=== PATIENT | male | born 1950 | race Caucasian/White ===

== ENCOUNTER 2017-11-06 19:46 | Inpatient (IN) | payer MEDICARE, BC ==
[2017-11-06] MEDS ORDERED: Acetaminophen/oxyCODONE 325-5 MG Tab PO ONE (20:26)
--- NOTE | 2017-11-06 20:31 | EDM.PDOC ---
ED HPI GENERAL MEDICAL PROBLEM - General Chief Complaint: Back Pain or Injury Stated Complaint: PAIN ON SHOULDER NOT AN ACCIDENT Time Seen by Provider: 11/06/17 20:15 Source of Information: Reports: Patient, Old Records, RN History Limitations: Reports: No Limitations - History of Present Illness INITIAL COMMENTS - FREE TEXT/NARRATIVE: 67 yo male followed at [place] for a recent dx of metastatic prostate CA. Recently had radiation tx's to his spine to tx mets at that site. Hormone therapy has been discussed, but not initiated. Has recent onset of chills(last night) and now pleuritic pain to the R upper back. Took an OTC agent for pain([facility] [employer] [facility] [employer]) about 1830h tonight. Not SOB. No significant cough. Pain today with breathing is in a different location from where he had his radiation treatment. Dry cough. Started smoking again, cigars, recently. Onset: Gradual Onset Date: 11/05/17 Duration: Hour(s):, Getting Worse Location: Reports: Chest, Back (R upper back in region of his ribs) Quality: Reports: Sharp Severity: Moderate Improves with: Reports: Rest Worsens with: Reports: Breathing (or coughing) Context: Reports: Other (recent chills, metastatic prostate CA) Associated Symptoms: Reports: Chest Pain (pleuritic), Fever/Chills (not sure about fever). Denies: Diaphoresis, Nausea/Vomiting, Rash, Shortness of Breath Treatments FOOD SERVER: Reports: Aspirin (Jason [employer]) Right Sided upper Back Pain Score (Numeric/FACES): 10 - Related Data Allergies Allergy/AdvReac Type Severity Reaction Status Date / Time No Known Allergies Allergy Verified 11/06/17 20:05 Home Meds: Home Meds Celecoxib [CeleBREX] 200 mg PO DAILY 08/23/15 [History] Omeprazole [Prilosec] 20 mg PO DAILY 08/23/15 [History] Sertraline [Zoloft] 50 mg PO DAILY 08/23/15 [History] Past Medical History HEENT History: Reports: Hard of Hearing, Impaired Vision Cardiovascular History: Reports: High Cholesterol, Other (See Below) Other Cardiovascular History: Pericardis many years ago Respiratory History: Reports: COPD Gastrointestinal History: Reports: Chronic Diarrhea, GERD, Hemorrhoids Genitourinary History: Reports: Prostate Disorder, Retention, Urinary, Other ( See Below) Other Genitourinary History: Prostate cancer Musculoskeletal History: Reports: Osteoarthritis Psychiatric History: Reports: Anxiety, Depression Oncologic (Cancer) History: Reports: Prostate Other Oncologic History: Prostate cancer 2014 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 Currently getting radiation to that area. Seefany Higginbotham, urologist at [place] - Infectious Disease History Infectious Disease History: Reports: Chicken Pox - Past Surgical History HEENT Surgical History: Reports: Oral Surgery, Tonsillectomy Social & Family History - Family History Family Medical History: Unobtainable - Tobacco Use Smoking Status *Q: Current Every Day Smoker Years of Tobacco use: 2 Packs/Tins Daily: 0.5 Used Tobacco, but Quit: No Tobacco Use Comment: Did quit for 15 years and recently started up smoking cigars. Second Hand Smoke Exposure: Yes - Caffeine Use Caffeine Use: Reports: Coffee - Alcohol Use Days Per Week of Alcohol Use: 4 Number of Drinks Per Day: 3 Total Drinks Per Week: 12 - Recreational Drug Use Recreational Drug Use: Yes ED ROS GENERAL - Review of Systems Review Of Systems: See Below Constitutional: Reports: Chills HEENT: Reports: No Symptoms Respiratory: Reports: Pleuritic Chest Pain (R posterior upper back), Cough (dry) . Denies: Shortness of Breath, Wheezing, Sputum, Hemoptysis Cardiovascular: Reports: No Symptoms Endocrine: Reports: No Symptoms GI/Abdominal: Reports: No Symptoms : Reports: No Symptoms Musculoskeletal: Reports: Back Pain (R upper back) Skin: Reports: No Symptoms Neurological: Reports: No Symptoms Psychiatric: Reports: No Symptoms ED EXAM, UPPER BACK/NECK PAIN - Physical Exam Exam: See Below Exam Limited By: No Limitations General Appearance: Alert, WD/WN, No Apparent Distress Eye Exam: Bilateral Eye: Normal Inspection Ears Exam: Normal External Exam, Hearing Grossly Normal Nose Exam: Normal Inspection, Normal Mucousa, No Blood Throat/Mouth Exam: Normal Inspection, Normal Lips, Normal Oropharynx, Normal Voice, No Airway Compromise Head Exam: Atraumatic, Normocephalic Neck Exam: Non-Tender, Full Range of Motion GI/Abdominal: Normal Bowel Sounds, Soft, Non-Tender, No Distention Back Exam: Normal Inspection, Other (Rib tenderness to the R mid back, just below and lateral to the lower edge of the scapula. ). 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 Had a recent IV start in this area. ) Lymphatic: No Adenopathy Course - Vital Signs Last Recorded V/S: Last Vital Signs Temp 36.6 C 11/06/17 22:10 Pulse 85 11/06/17 22:10 Resp 16 11/06/17 22:10 BP 155/88 H 11/06/17 22:10 Pulse Ox 95 11/06/17 22:10 - Orders/Labs/Meds Orders: Active Orders 24 hr Category Date Time Status Ang Chest [CT] Stat Exams 11/06/17 21:26 Taken Chest 2V [CR] Stat Exams 11/06/17 20:24 Taken Iopamidol [Isovue-370 (76%)] Med 11/06/17 21:45 Active 100 ml IV . DIRECTED Sodium Chloride 0.9% [Normal Saline] 100 ml Med 11/06/17 21:45 Active IV ASDIRECTED Sodium Chloride 0.9% [Saline Flush] Med 11/06/17 21:37 Active 10 ml FLUSH ASDIRECTED PRN Medication Orders Sodium Chloride (Normal Saline) 100 mls @ 4 mls/sec IV ASDIRECTED ARTHUR Last Admin: 11/06/17 22:05 Dose: 4 mls/sec Iopamidol (Isovue-370 (76%)) 100 ml IV . DIRECTED ARTHUR Last Admin: 11/06/17 22:05 Dose: 100 ml Sodium Chloride (Saline Flush) 10 ml FLUSH ASDIRECTED PRN PRN Reason: Keep Vein Open Last Admin: 11/06/17 22:04 Dose: 10 ml Admin: 11/06/17 21:44 Dose: 10 ml Labs: Laboratory Tests 11/06/17 11/06/17 11/06/17 Range/Units 20:24 20:24 20:24 WBC 11.9 H (4.5-11.0) K/uL RBC 4.65 (4.30-5.90) M/uL Hgb 14.5 (12.0-15.0) g/dL Hct 44.6 (40.0-54.0) % MCV 96 (80-98) fL MCH 31 (27-31) pg MCHC 33 (32-36) % Plt Count 161 (150-400) K/uL D-Dimer, Quantitative (0.0-400.0) ng/mL Sodium 141 (140-148) mmol/L Potassium 4.3 (3.6-5.2) mmol/L Chloride 106 (100-108) mmol/L Carbon Dioxide 25 (21-32) mmol/L Anion Gap 9.9 (5.0-14.0) mmol/L BUN 31 H (7-18) mg/dL Creatinine 1.4 H (0.8-1.3) mg/dL Est Cr Clr Drug Dosing 50.21 mL/min Estimated GFR (MDRD) 51 L (>60) Glucose 117 H (74-106) mg/dL Calcium 9.2 (8.5-10.1) mg/dL C-Reactive Protein 2.21 H (0.0-0.3) mg/dL 11/06/17 Range/Units 20:29 WBC (4.5-11.0) K/uL RBC (4.30-5.90) M/uL Hgb (12.0-15.0) g/dL Hct (40.0-54.0) % MCV (80-98) fL MCH (27-31) pg MCHC (32-36) % Plt Count (150-400) K/uL D-Dimer, Quantitative 2170 H (0.0-400.0) ng/mL Sodium (140-148) mmol/L Potassium (3.6-5.2) mmol/L Chloride (100-108) mmol/L Carbon Dioxide (21-32) mmol/L Anion Gap (5.0-14.0) mmol/L BUN (7-18) mg/dL Creatinine (0.8-1.3) mg/dL Est Cr Clr Drug Dosing mL/min Estimated GFR (MDRD) (>60) Glucose (74-106) mg/dL Calcium (8.5-10.1) mg/dL C-Reactive Protein (0.0-0.3) mg/dL Meds: Medications Generic Name Dose Route Start Last Admin Trade Name Freq PRN Reason Stop Dose Admin Sodium Chloride 100 mls @ 4 mls/sec 11/06/17 21:45 11/06/17 22:05 Normal Saline IV 4 mls/sec ASDIRECTED ARTHUR Administration Iopamidol 100 ml 11/06/17 21:45 11/06/17 22:05 Isovue-370 (76%) IV 100 ml . DIRECTED ARTHUR Administration Sodium Chloride 10 ml 11/06/17 21:37 11/06/17 22:04 Saline Flush FLUSH 10 ml ASDIRECTED PRN Administration Keep Vein Open Discontinued Medications Generic Name Dose Route Start Last Admin Trade Name Freq PRN Reason Stop Dose Admin Lactated Ringer's 1,000 mls @ 1,000 mls/hr 11/06/17 21:15 11/06/17 21:43 Ringers, Lactated IV 11/06/17 22:14 1,000 mls/hr BOLUS ONE Administration Oxycodone/Acetaminophen 1 tab 11/06/17 20:26 11/06/17 20:32 Percocet 325-5 Mg PO 11/06/17 20:27 1 tab ONETIME ONE Administration - Radiology Interpretation Free Text/Narrative:: CXR-? small infiltrate to the R of the lower heart border. CT-multiple small, bilateral, acute pulm emboli CT Results Date: 11/06/17 CT Results Time: 22:31 Departure - Departure Time of Disposition: 23:00 Disposition: Admitted As Inpatient 67 Condition: Fair Clinical Impression: Prostate cancer metastatic to bone Pulmonary emboli Qualifiers: Pulmonary embolism type: other Chronicity: acute Acute cor pulmonale presence: without acute cor pulmonale Qualified Code(s): I26.99 - Other pulmonary embolism without acute cor pulmonale - Discharge Information Referrals: Michael Keen MD [Primary Care Provider] - Forms: ED Department Discharge - My Orders Last 24 Hours: My Active Orders 11/06/17 20:24 Chest 2V [CR] Stat 11/06/17 21:26 Ang Chest [CT] Stat 11/06/17 21:37 Sodium Chloride 0.9% [Saline Flush] 10 ml FLUSH ASDIRECTED PRN 11/06/17 21:45 Iopamidol [Isovue-370 (76%)] 100 ml IV . DIRECTED Sodium Chloride 0.9% [Normal Saline] 100 ml IV ASDIRECTED - Assessment/Plan Last 24 Hours: My Active Orders 11/06/17 20:24 Chest 2V [CR] Stat 11/06/17 21:26 Ang Chest [CT] Stat 11/06/17 21:37 Sodium Chloride 0.9% [Saline Flush] 10 ml FLUSH ASDIRECTED PRN 11/06/17 21:45 Iopamidol [Isovue-370 (76%)] 100 ml IV . DIRECTED Sodium Chloride 0.9% [Normal Saline] 100 ml IV ASDIRECTED
[2017-11-06] MEDS ORDERED: Lactated Ringers 1,000 ML IV ONE (21:15)
[2017-11-06] MEDS: Sodium Chloride 0.9% 10 ML Syringe FLUSH PRN ×2 (21:44→22:04)
[2017-11-06] MEDS ORDERED: Sodium Chloride 0.9% 100 ML IV SCH (21:45)
[2017-11-06] MEDS ORDERED: Iopamidol 755 Mg/ML 100 ML Bottle IV SCH (21:45)
[2017-11-06] MEDS ORDERED: Enoxaparin 80 MG/0.8 ML Syringe SUBCUT ONE (22:31)
--- NOTE | 2017-11-06 23:40 | PCM.HP ---
H&P History of Present Illness - General Date of Service: 11/06/17 Admit Problem/Dx: Admission Diagnosis/Problem Admission Diagnosis/Problem Pulmonary embolism Source of Information: Patient, Family, Provider, RN Notes Reviewed History Limitations: Reports: No Limitations - History of Present Illness Initial Comments - Free Text/Narative: Mr. Baez is a 67-year-old gentleman who is admitted through the emergency department for further management of bilateral pulmonary emboli. 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 He has received recent radiation therapy to these areas at the [facility] in [place]. He was doing fairly well following this when he is noted over the past 24 hours not feeling as well, generally more tired and perhaps slightly more short of breath. Early this evening developed abrupt onset of pleuritic pain in his right back. He presented to the emergency department for further evaluation, d-dimer was found to be elevated. CT scan of the chest shows evidence of several bilateral pulmonary emboli. He is otherwise hemodynamically stable with adequate oxygenation on room air. He has no previous history of deep vein thrombosis or pulmonary emboli, he thinks his father may have had a history of deep vein thrombosis. Right Sided upper Back Pain Score (Numeric/FACES): 10 - Related Data Allergies/Adverse Reactions: Allergies Allergy/AdvReac Type Severity Reaction Status Date / Time No Known Allergies Allergy Verified 11/06/17 20:05 Home Medications: Home Meds Celecoxib [CeleBREX] 200 mg PO DAILY 08/23/15 [History] Omeprazole [Prilosec] 20 mg PO DAILY 08/23/15 [History] Sertraline [Zoloft] 50 mg PO DAILY 08/23/15 [History] Past Medical History HEENT History: Reports: Hard of Hearing, Impaired Vision Cardiovascular History: Reports: High Cholesterol, Other (See Below) Other Cardiovascular History: Pericardis many years ago Respiratory History: Reports: COPD Gastrointestinal History: Reports: Chronic Diarrhea, GERD, Hemorrhoids Genitourinary History: Reports: Prostate Disorder, Retention, Urinary, Other ( See Below) Other Genitourinary History: Prostate cancer Musculoskeletal History: Reports: Osteoarthritis Psychiatric History: Reports: Anxiety, Depression Oncologic (Cancer) History: Reports: Prostate Other Oncologic History: Prostate cancer 2014 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 Currently getting radiation to that area. Sees Alejandro Higginbotham, urologist at [facility] - Infectious Disease History Infectious Disease History: Reports: Chicken Pox - Past Surgical History HEENT Surgical History: Reports: Oral Surgery, Tonsillectomy Social & Family History - Family History Family Medical History: Unobtainable - Tobacco Use Smoking Status *Q: Current Every Day Smoker Years of Tobacco use: 2 Packs/Tins Daily: 0.5 Used Tobacco, but Quit: No Tobacco Use Comment: Did quit for 15 years and recently started up smoking cigars. Second Hand Smoke Exposure: Yes - Caffeine Use Caffeine Use: Reports: Coffee - Alcohol Use Days Per Week of Alcohol Use: 4 Number of Drinks Per Day: 3 Total Drinks Per Week: 12 - Recreational Drug Use Recreational Drug Use: Yes H&P Review of Systems - Review of Systems: Review Of Systems: See Below General: Reports: Malaise, Weakness. Denies: Fever, Chills HEENT: Reports: No Symptoms Pulmonary: Reports: Shortness of Breath, Pleuritic Chest Pain. Denies: Wheezing , Cough, Sputum, Hemoptysis Cardiovascular: Reports: Dyspnea on Exertion. Denies: Chest Pain, Palpitations , Orthopnea, PND, Edema, Lightheadedness Gastrointestinal: Reports: No Symptoms Genitourinary: Reports: No Symptoms Musculoskeletal: Reports: No Symptoms Skin: Reports: No Symptoms Psychiatric: Reports: No Symptoms Neurological: Reports: No Symptoms Hematologic/Lymphatic: Reports: No Symptoms Immunologic: Reports: No Symptoms Exam - Exam Exam: See Below - Vital Signs Vital Signs: Last Vital Signs Temp 98 F 11/06/17 22:10 Pulse 85 11/06/17 22:10 Resp 16 11/06/17 22:10 BP 155/88 H 11/06/17 22:10 Pulse Ox 95 11/06/17 22:10 Weight: 185 lb 13.595 oz - Exam Quality Assessment: DVT Prophylaxis. No: Supplemental Oxygen General: Alert, Oriented, Cooperative, Mild Distress HEENT: Conjunctiva Clear, Mucosa Moist & [place], Normal Nasal Septum, Posterior Pharynx Clear, Pupils Equal. No: Hearing Intact Neck: Supple, Trachea Midline, +2 Carotid Pulse wo Bruit Lungs: Clear to Auscultation, Normal Respiratory Effort Cardiovascular: Regular Rate, Regular Rhythm, Normal S1, Normal S2. No: Systolic Murmur, Diastolic Murmur GI/Abdominal Exam: Soft, Non-Tender, No Organomegaly, No Distention Back Exam: Normal Inspection, Full Range of Motion Extremities: Non-Tender, No Pedal Edema Skin: Warm, Dry, Intact Neurological: Cranial Nerves Intact, Strength Equal Bilateral, Normal Speech, Normal Tone, Sensation Intact. No: Focal Deficit Neuro Extensive - Mental Status: Alert, Oriented x3, Normal Mood/Affect, Normal Cognition, Memory Intact - Patient Data Lab Results Last 24 hrs: Laboratory Results - last 24 hr 11/06/17 11/06/17 11/06/17 Range/Units 20:24 20:24 20:24 WBC 11.9 H (4.5-11.0) K/uL RBC 4.65 (4.30-5.90) M/uL Hgb 14.5 (12.0-15.0) g/dL Hct 44.6 (40.0-54.0) % MCV 96 (80-98) fL MCH 31 (27-31) pg MCHC 33 (32-36) % Plt Count 161 (150-400) K/uL D-Dimer, Quantitative (0.0-400.0) ng/mL Sodium 141 (140-148) mmol/L Potassium 4.3 (3.6-5.2) mmol/L Chloride 106 (100-108) mmol/L Carbon Dioxide 25 (21-32) mmol/L Anion Gap 9.9 (5.0-14.0) mmol/L BUN 31 H (7-18) mg/dL Creatinine 1.4 H (0.8-1.3) mg/dL Est Cr Clr Drug Dosing 50.21 mL/min Estimated GFR (MDRD) 51 L (>60) Glucose 117 H (74-106) mg/dL Calcium 9.2 (8.5-10.1) mg/dL C-Reactive Protein 2.21 H (0.0-0.3) mg/dL 11/06/17 Range/Units 20:29 WBC (4.5-11.0) K/uL RBC (4.30-5.90) M/uL Hgb (12.0-15.0) g/dL Hct (40.0-54.0) % MCV (80-98) fL MCH (27-31) pg MCHC (32-36) % Plt Count (150-400) K/uL D-Dimer, Quantitative 2170 H (0.0-400.0) ng/mL Sodium (140-148) mmol/L Potassium (3.6-5.2) mmol/L Chloride (100-108) mmol/L Carbon Dioxide (21-32) mmol/L Anion Gap (5.0-14.0) mmol/L BUN (7-18) mg/dL Creatinine (0.8-1.3) mg/dL Est Cr Clr Drug Dosing mL/min Estimated GFR (MDRD) (>60) Glucose (74-106) mg/dL Calcium (8.5-10.1) mg/dL C-Reactive Protein (0.0-0.3) mg/dL Result Diagrams: 11/06/17 20:24 11/06/17 20:24 *Q Meaningful Use (ADM) - VTE *Q VTE Criteria *Q: VTE Pharmacological Contraindications *Q: High INR Value - VTE Risk Assess *Q Each Risk Factor Represents 1 Point: Obesity ( BMI > 25 kg/m2) Total Score 1 Point Risk Factors: 1 Each Risk Factor Represents 2 Points: Age 60 - 74 Years, Malignancy (present or previous) Total Score 2 Point Risk Factors: 4 Each Risk Factor Represents 3 Points: None Total Score 3 Point Risk Factors: 0 Each Risk Factor Represents 5 Points: None Total Score 5 Point Risk Factors: 0 Venous Thromboembolism Risk Factor Score *Q: 5 - Stroke *Q Stroke Criteria *Q: - AMI *Q AMI Criteria *Q: Problem List Initiated/Reviewed/Updated: Yes Orders Last 24hrs: Active Orders 24 hr Category Date Time Status Patient Status Manage Transfer [TRANSFER] Routine ADT 11/06/17 23:22 Active Ang Chest [CT] Stat Exams 11/06/17 21:26 Taken Chest 2V [CR] Stat Exams 11/06/17 20:24 Taken Iopamidol [Isovue-370 (76%)] Med 11/06/17 21:45 Active 100 ml IV . DIRECTED Sodium Chloride 0.9% [Normal Saline] 100 ml Med 11/06/17 21:45 Active IV ASDIRECTED Sodium Chloride 0.9% [Saline Flush] Med 11/06/17 21:37 Active 10 ml FLUSH ASDIRECTED PRN Resuscitation Status Routine Resus Stat 11/06/17 23:23 Ordered Medication Orders Sodium Chloride (Normal Saline) 100 mls @ 4 mls/sec IV ASDIRECTED ARTHUR Last Admin: 11/06/17 22:05 Dose: 4 mls/sec Iopamidol (Isovue-370 (76%)) 100 ml IV . DIRECTED ARTHUR Last Admin: 11/06/17 22:05 Dose: 100 ml Sodium Chloride (Saline Flush) 10 ml FLUSH ASDIRECTED PRN PRN Reason: Keep Vein Open Last Admin: 11/06/17 22:04 Dose: 10 ml Admin: 11/06/17 21:44 Dose: 10 ml Assessment/Plan Comment:: ASSESSMENT AND PLAN BILATERAL PULMONARY EMBOLI-in the setting of underlying metastatic prostate cancer, status post radiation therapy to thoracic spine. CT scan of the chest documented several bilateral pulmonary emboli. Discussed options for management including warfarin versus newer agents, risks and benefits were reviewed and he has elected to pursue therapy with warfarin -IV heparin per protocol for 2 days, then transition to subcutaneous Lovenox, overlap therapy for 5 days or 2 days after INR becomes therapeutic, which ever is longer -Daily INR -Warfarin 7.5 mg by mouth now METASTATIC PROSTATE CANCER -Ongoing outpatient follow-up through oncology department at the [facility] in [place] MAINTENANCE ISSUES -DVT prophylaxis; current therapy with IV heparin should provide adequate DVT prophylaxis -GI prophylaxis; continue outpatient PPI therapy -Caruso catheter; not required -Nutrition; not required -Nicotine dependence; not required CODE STATUS-FULL CODE ADMISSION STATUS-patient will be admitted to inpatient status, expect at least a 2 night hospital stay for evaluation and management of problems as outlined above. At the time of this admission I do not reasonably expected evaluation and management of this problem will require more than a 96 hour hospital stay. DISPOSITION-anticipate discharge to home after the hospital stay. PRIMARY CARE PROVIDER-Dr. Keen
[2017-11-06] MEDS ORDERED: Warfarin 2.5 MG Tab PO ONE (23:57)
[2017-11-06] MEDS ORDERED: Ondansetron 4 MG/2 ML SDV IV PRN (23:57)
[2017-11-06] MEDS ORDERED: Sodium Chloride 0.9% 10 ML Syringe FLUSH PRN (23:57)
[2017-11-07] MEDS: Lactated Ringers 1,000 ML IV SCH ×2 (00:40→08:00)
[2017-11-07] MEDS: Heparin Sodium/D5W 25,000 UNITS/500 ML BAG IV SCH ×2 (00:45→18:15)
[2017-11-07] MEDS: oxyCODONE 5 MG Tab PO PRN ×4 (01:10→20:21)
[2017-11-07] MEDS: Pantoprazole 40 MG Tab.CR PO SCH (07:58)
[2017-11-07] MEDS: Celecoxib 200 MG Cap PO SCH (08:00)
[2017-11-07] MEDS: Sertraline 50 MG Tab PO SCH (08:00)
--- NOTE | 2017-11-07 08:58 | CR ---
Chest 2V FINDINGS: The heart and vascular structures are normal in appearance. There are subtle increased inte rstitial markings in the right mid and lower lung lazar. There is mild density in the left lung base which may reflect atelectasis or mild infiltrate. There are no pleural effusions. Impression: 1. Mild interstitial infiltrates of the right mid lung and left base. There may be underlying fibrosi s as well.
[2017-11-07] MEDS ORDERED: Non-Formulary Medication 1 Each (Omeprazole [Prilosec] 20 MG) PO SCH (09:00)
--- NOTE | 2017-11-07 11:57 | PCM.PN ---
- General Info Date of Service: 11/07/17 Subjective Update: Mr. Baez has been stable since admission, other than transient hypoxia during the night that did respond to supplemental oxygen. Vital signs have otherwise been good and he has remained afebrile. Denies significant shortness of breath and has pleuritic chest pain has improved from admission. Functional Status: Reports: Pain Controlled, Tolerating Diet, Urinating - Review of Systems General: Reports: No Symptoms Pulmonary: Reports: No Symptoms Cardiovascular: Reports: No Symptoms Gastrointestinal: Reports: No Symptoms - Patient Data Vitals - Most Recent: Last Vital Signs Temp 96.3 F 11/07/17 11:00 Pulse 63 11/07/17 11:00 Resp 16 11/07/17 11:00 BP 121/53 L 11/07/17 11:00 Pulse Ox 93 L 11/07/17 11:00 Weight - Most Recent: 184 lb 12.804 oz I&O - Last 24 Hours: Intake & Output 11/06/17 11/07/17 11/07/17 22:59 06:59 14:59 Intake Total 783 100 Output Total 375 625 Balance 408 -525 Lab Results Last 24 Hours: Laboratory Results - last 24 hr 11/06/17 11/07/17 11/07/17 Range/Units 23:57 00:41 06:51 WBC (4.5-11.0) K/uL RBC (4.30-5.90) M/uL Hgb (12.0-15.0) g/dL Hct (40.0-54.0) % MCV (80-98) fL MCH (27-31) pg MCHC (32-36) % Plt Count (150-400) K/uL Neut % (Auto) (36-66) % Lymph % (Auto) (24-44) % Blount % (Auto) (2-6) % Eos % (Auto) (2-4) % Baso % (Auto) (0-1) % PT 10.0 10.3 (9.5-12.0) sec INR 0.94 0.96 (0.80-1.20) APTT 28.2 (27.0-36.0) sec Sodium (140-148) mmol/L Potassium (3.6-5.2) mmol/L Chloride (100-108) mmol/L Carbon Dioxide (21-32) mmol/L Anion Gap (5.0-14.0) mmol/L BUN (7-18) mg/dL Creatinine (0.8-1.3) mg/dL Est Cr Clr Drug Dosing mL/min Estimated GFR (MDRD) (>60) Glucose (74-106) mg/dL Calcium (8.5-10.1) mg/dL 11/07/17 11/07/17 11/07/17 Range/Units 06:51 06:51 06:51 WBC 7.9 (4.5-11.0) K/uL RBC 4.30 (4.30-5.90) M/uL Hgb 13.7 (12.0-15.0) g/dL Hct 41.5 (40.0-54.0) % MCV 97 (80-98) fL MCH 32 H (27-31) pg MCHC 33 (32-36) % Plt Count 145 L (150-400) K/uL Neut % (Auto) 58 (36-66) % Lymph % (Auto) 27 (24-44) % Blount % (Auto) 11 H (2-6) % Eos % (Auto) 4 (2-4) % Baso % (Auto) 0 (0-1) % PT (9.5-12.0) sec INR (0.80-1.20) APTT 61.8 H (27.0-36.0) sec Sodium 145 (140-148) mmol/L Potassium 3.9 (3.6-5.2) mmol/L Chloride 109 H (100-108) mmol/L Carbon Dioxide 25 (21-32) mmol/L Anion Gap 14.9 H (5.0-14.0) mmol/L BUN 27 H (7-18) mg/dL Creatinine 1.2 (0.8-1.3) mg/dL Est Cr Clr Drug Dosing 58.58 mL/min Estimated GFR (MDRD) > 60 (>60) Glucose 85 (74-106) mg/dL Calcium 8.6 (8.5-10.1) mg/dL Med Orders - Current: Current Medications Acetaminophen (Tylenol) 650 mg PO Q4H PRN PRN Reason: Pain (Mild 1-3)/fever Celecoxib (Celebrex) 200 mg PO DAILY [facility] Last Admin: 11/07/17 08:00 Dose: 200 mg Heparin Sodium/Dextrose (Heparin 25,000 Units In D5w 500 Ml) 25,000 units in 500 mls @ 26 mls/hr IV TITRATE [facility] PRN Reason: Protocol Last Admin: 11/07/17 00:45 Dose: 26 mls/hr, 26 mls/hr Ondansetron HCl (Zofran) 4 mg IV Q4H PRN PRN Reason: Nausea/Vomiting Oxycodone HCl (Oxycodone) 10 mg PO Q4H PRN PRN Reason: Pain (moderate 4-6) Last Admin: 11/07/17 07:57 Dose: 10 mg Pantoprazole Sodium (Protonix) 40 mg PO ACBREAKFAST [facility] Last Admin: 11/07/17 07:58 Dose: 40 mg Sertraline HCl (Zoloft) 50 mg PO DAILY [facility] Last Admin: 11/07/17 08:00 Dose: 50 mg Sodium Chloride (Saline Flush) 10 ml FLUSH ASDIRECTED PRN PRN Reason: Keep Vein Open Warfarin Sodium (Coumadin) 7.5 mg PO ONETIME ONE Stop: 11/07/17 11:55 Discontinued Medications Enoxaparin Sodium (Lovenox) 80 mg SUBCUT ONETIME ONE Stop: 11/06/17 22:32 Last Admin: 11/06/17 22:46 Dose: 80 mg Lactated Ringer's (Ringers, Lactated) 1,000 mls @ 1,000 mls/hr IV BOLUS ONE Stop: 11/06/17 22:14 Last Admin: 11/06/17 21:43 Dose: 1,000 mls/hr Sodium Chloride (Normal Saline) 100 mls @ 4 mls/sec IV ASDIRECTED [facility] Last Admin: 11/06/17 22:05 Dose: 4 mls/sec Lactated Ringer's (Ringers, Lactated) 1,000 mls @ 125 mls/hr IV ASDIRECTED [facility] Last Admin: 11/07/17 08:00 Dose: 125 mls/hr Iopamidol (Isovue-370 (76%)) 100 ml IV . DIRECTED [facility] Last Admin: 11/06/17 22:05 Dose: 100 ml Oxycodone/Acetaminophen (Percocet 325-5 Mg) 1 tab PO ONETIME ONE Stop: 11/06/17 20:27 Last Admin: 11/06/17 20:32 Dose: 1 tab Sodium Chloride (Saline Flush) 10 ml FLUSH ASDIRECTED PRN PRN Reason: Keep Vein Open Last Admin: 11/06/17 22:04 Dose: 10 ml Warfarin Sodium (Coumadin) 7.5 mg PO ONETIME ONE Stop: 11/06/17 23:58 Last Admin: 11/07/17 01:11 Dose: 7.5 mg - Exam Quality Assessment: Supplemental Oxygen, DVT Prophylaxis General: Alert, Oriented, Cooperative, No Acute Distress Lungs: Clear to Auscultation, Normal Respiratory Effort Cardiovascular: Regular Rate, Regular Rhythm, No Murmurs GI/Abdominal Exam: Soft, Non-Tender, No Organomegaly, No Distention Extremities: Non-Tender, No Pedal Edema Skin: Warm, Dry, Intact - Problem List Review Problem List Initiated/Reviewed/Updated: Yes - My Orders Last 24 Hours: My Active Orders 11/06/17 23:23 Resuscitation Status Routine 11/06/17 23:57 Patient Status [ADT] Routine Ambulate [RC] QID Height and Weight [RC] DAILY Intake and Output [RC] QSHIFT Notify Provider Vital Signs [RC] ASDIRECTED Oxygen Therapy [RC] PRN Peripheral IV Care [RC] . DIRECTED Pulse Oximetry [RC] CONTINUOUS Up ad Elyssa [RC] ASDIRECTED Up to Chair [RC] QID VTE/DVT Education [RC] Per Unit Routine Vital Signs [RC] Q4H Acetaminophen [Tylenol] 650 mg PO Q4H PRN Heparin Sodium/D5W [Heparin 25,000 Units in D5W 500 ML] 25,000 units in 500 ml IV TITRATE Ondansetron [Zofran] 4 mg IV Q4H PRN Sodium Chloride 0.9% [Saline Flush] 10 ml FLUSH ASDIRECTED PRN oxyCODONE 10 mg PO Q4H PRN Peripheral IV Insertion Adult [OM.PC] Routine VTE Pharmacological Contraindications [AST] Per Unit Routine 11/06/17 Dinner Regular Diet [DIET] 11/07/17 07:30 Pantoprazole [ProTONIX] 40 mg PO ACBREAKFAST 11/07/17 11:53 Convert IV to Saline Lock [OM.PC] Routine 11/07/17 11:54 Warfarin [Coumadin] 7.5 mg PO ONETIME ONE 11/08/17 05:00 CBC WITH AUTO DIFF [HEME] Timed INR,PT,PROTHROMBIN TIME [COAG] DAILY 11/09/17 05:00 INR,PT,PROTHROMBIN TIME [COAG] DAILY 11/10/17 05:00 INR,PT,PROTHROMBIN TIME [COAG] DAILY 11/11/17 05:00 INR,PT,PROTHROMBIN TIME [COAG] DAILY - Plan Plan:: ASSESSMENT AND PLAN BILATERAL PULMONARY EMBOLI-other than transient hypoxia he has been stable since admission with improvement in his pleuritic pain -IV heparin per protocol for 2 days, then transition to subcutaneous Lovenox, overlap therapy for 5 days or 2 days after INR becomes therapeutic, which ever is longer -Daily INR -Warfarin 7.5 mg by mouth now METASTATIC PROSTATE CANCER -Ongoing outpatient follow-up through oncology department at the [facility] in [place] MAINTENANCE ISSUES -DVT prophylaxis; current therapy with IV heparin should provide adequate DVT prophylaxis -GI prophylaxis; continue outpatient PPI therapy -Caruso catheter; not required -Nutrition; not required -Nicotine dependence; not required CODE STATUS-FULL CODE ADMISSION STATUS-patient will be admitted to inpatient status, expect at least a 2 night hospital stay for evaluation and management of problems as outlined above. At the time of this admission I do not reasonably expected evaluation and management of this problem will require more than a 96 hour hospital stay. DISPOSITION-anticipate discharge to home after the hospital stay. PRIMARY CARE PROVIDER-Dr. Keen
[2017-11-07] MEDS ORDERED: Warfarin 2.5 MG Tab PO ONE (13:00)
[2017-11-07] MEDS: Acetaminophen 325 MG Tab PO PRN (20:20)
[2017-11-08] MEDS: Acetaminophen 325 MG Tab PO PRN ×4 (00:24→21:15)
[2017-11-08] MEDS: oxyCODONE 5 MG Tab PO PRN ×4 (00:25→21:15)
[2017-11-08] MEDS: Pantoprazole 40 MG Tab.CR PO SCH (07:57)
[2017-11-08] MEDS: Sertraline 50 MG Tab PO SCH (09:31)
[2017-11-08] MEDS: Celecoxib 200 MG Cap PO SCH (09:31)
--- NOTE | 2017-11-08 12:03 | PCM.PN ---
- General Info Date of Service: 11/08/17 Subjective Update: Mr. Baez has been stable since yesterday, denies significant shortness of breath. Vital signs have remained stable and he has been afebrile. Functional Status: Reports: Pain Controlled, Tolerating Diet, Urinating - Review of Systems General: Denies: Fever, Chills Pulmonary: Reports: No Symptoms Cardiovascular: Reports: No Symptoms Gastrointestinal: Reports: No Symptoms - Patient Data Vitals - Most Recent: Last Vital Signs Temp 96.7 F 11/08/17 07:15 Pulse 50 L 11/08/17 07:15 Resp 16 11/08/17 07:15 BP 133/98 H 11/08/17 07:15 Pulse Ox 91 L 11/08/17 07:40 Weight - Most Recent: 184 lb 9.6 oz I&O - Last 24 Hours: Intake & Output 11/07/17 11/08/17 11/08/17 22:59 06:59 14:59 Intake Total 570 317 360 Output Total 350 750 400 Balance 220 -433 -40 Lab Results Last 24 Hours: Laboratory Results - last 24 hr 11/08/17 11/08/17 11/08/17 Range/Units 05:45 05:46 05:46 WBC 5.8 (4.5-11.0) K/uL RBC 4.29 L (4.30-5.90) M/uL Hgb 13.4 (12.0-15.0) g/dL Hct 41.4 (40.0-54.0) % MCV 97 (80-98) fL MCH 31 (27-31) pg MCHC 32 (32-36) % Plt Count 141 L (150-400) K/uL Neut % (Auto) 49 (36-66) % Lymph % (Auto) 29 (24-44) % Holt % (Auto) 14 H (2-6) % Eos % (Auto) 7 H (2-4) % Baso % (Auto) 1 (0-1) % PT 11.8 (9.5-12.0) sec INR 1.10 (0.80-1.20) APTT 63.8 H (27.0-36.0) sec Med Orders - Current: Current Medications Acetaminophen (Tylenol) 650 mg PO Q4H PRN PRN Reason: Pain (Mild 1-3)/fever Last Admin: 11/08/17 06:17 Dose: 650 mg Celecoxib (Celebrex) 200 mg PO DAILY [facility] Last Admin: 11/08/17 09:31 Dose: 200 mg Ondansetron HCl (Zofran) 4 mg IV Q4H PRN PRN Reason: Nausea/Vomiting Oxycodone HCl (Oxycodone) 10 mg PO Q4H PRN PRN Reason: Pain (moderate 4-6) Last Admin: 11/08/17 06:17 Dose: 10 mg Pantoprazole Sodium (Protonix) 40 mg PO ACBREAKFAST [facility] Last Admin: 11/08/17 07:57 Dose: 40 mg Sertraline HCl (Zoloft) 50 mg PO DAILY [facility] Last Admin: 11/08/17 09:31 Dose: 50 mg Sodium Chloride (Saline Flush) 10 ml FLUSH ASDIRECTED PRN PRN Reason: Keep Vein Open Discontinued Medications Enoxaparin Sodium (Lovenox) 80 mg SUBCUT ONETIME ONE Stop: 11/06/17 22:32 Last Admin: 11/06/17 22:46 Dose: 80 mg Lactated Ringer's (Ringers, Lactated) 1,000 mls @ 1,000 mls/hr IV BOLUS ONE Stop: 11/06/17 22:14 Last Admin: 11/06/17 21:43 Dose: 1,000 mls/hr Sodium Chloride (Normal Saline) 100 mls @ 4 mls/sec IV ASDIRECTED [facility] Last Admin: 11/06/17 22:05 Dose: 4 mls/sec Heparin Sodium/Dextrose (Heparin 25,000 Units In D5w 500 Ml) 25,000 units in 500 mls @ 26 mls/hr IV TITRATE [facility] PRN Reason: Protocol Last Admin: 11/07/17 18:15 Dose: 26 mls/hr, 26 mls/hr Lactated Ringer's (Ringers, Lactated) 1,000 mls @ 125 mls/hr IV ASDIRECTED [facility] Last Admin: 11/07/17 08:00 Dose: 125 mls/hr Iopamidol (Isovue-370 (76%)) 100 ml IV . DIRECTED [facility] Last Admin: 11/06/17 22:05 Dose: 100 ml Oxycodone/Acetaminophen (Percocet 325-5 Mg) 1 tab PO ONETIME ONE Stop: 11/06/17 20:27 Last Admin: 11/06/17 20:32 Dose: 1 tab Sodium Chloride (Saline Flush) 10 ml FLUSH ASDIRECTED PRN PRN Reason: Keep Vein Open Last Admin: 11/06/17 22:04 Dose: 10 ml Warfarin Sodium (Coumadin) 7.5 mg PO ONETIME ONE Stop: 11/06/17 23:58 Last Admin: 11/07/17 01:11 Dose: 7.5 mg Warfarin Sodium (Coumadin) 7.5 mg PO ONETIME ONE Stop: 11/07/17 13:01 Last Admin: 11/07/17 12:56 Dose: 7.5 mg - Exam Quality Assessment: DVT Prophylaxis. No: Supplemental Oxygen General: Alert, Oriented, Cooperative, No Acute Distress Lungs: Clear to Auscultation, Normal Respiratory Effort Cardiovascular: Regular Rate, Regular Rhythm, No Murmurs GI/Abdominal Exam: Soft, Non-Tender, No Organomegaly, No Distention Extremities: Non-Tender, No Pedal Edema Skin: Warm, Dry, Intact - Problem List Review Problem List Initiated/Reviewed/Updated: Yes - My Orders Last 24 Hours: My Active Orders 11/07/17 11:53 Convert IV to Saline Lock [OM.PC] Routine 11/08/17 11:59 Warfarin [Coumadin] 10 mg PO ONETIME ONE 11/08/17 12:00 Enoxaparin [Lovenox] 120 mg SUBCUT DAILY 11/09/17 05:00 INR,PT,PROTHROMBIN TIME [COAG] DAILY 11/10/17 05:00 INR,PT,PROTHROMBIN TIME [COAG] DAILY 11/11/17 05:00 INR,PT,PROTHROMBIN TIME [COAG] DAILY - Plan Plan:: ASSESSMENT AND PLAN BILATERAL PULMONARY EMBOLI-stable since yesterday with no significant shortness of breath -Discontinue IV heparin -Daily INR -Warfarin 10 mg by mouth now -Lovenox 120 mg subcutaneous daily METASTATIC PROSTATE CANCER -Ongoing outpatient follow-up through oncology department at the [facility] in [place] MAINTENANCE ISSUES -DVT prophylaxis; current therapy with IV heparin should provide adequate DVT prophylaxis -GI prophylaxis; continue outpatient PPI therapy -Caruso catheter; not required -Nutrition; not required -Nicotine dependence; not required CODE STATUS-FULL CODE ADMISSION STATUS-patient will be admitted to inpatient status, expect at least a 2 night hospital stay for evaluation and management of problems as outlined above. At the time of this admission I do not reasonably expected evaluation and management of this problem will require more than a 96 hour hospital stay. DISPOSITION-anticipate discharge to home tomorrow PRIMARY CARE PROVIDER-Dr. eKen
[2017-11-08] MEDS ORDERED: Warfarin 5 MG Tab PO ONE (13:00)
[2017-11-08] MEDS: Enoxaparin 120 MG/0.8 ML Syringe SUBCUT SCH (13:03)
[2017-11-09 08:08] VITALS: BP 164/86
[2017-11-09] MEDS: Pantoprazole 40 MG Tab.CR PO SCH (08:21)
[2017-11-09] MEDS: Sertraline 50 MG Tab PO SCH (08:21)
[2017-11-09] MEDS: Celecoxib 200 MG Cap PO SCH (08:21)
[2017-11-09] MEDS: Enoxaparin 120 MG/0.8 ML Syringe SUBCUT SCH (11:14)
[2017-11-09] MEDS ORDERED: Warfarin 2.5 MG Tab PO ONE (11:31)
--- NOTE | 2017-11-09 11:41 | PCM.DCSUM1 ---
Discharge Summary - Hospital Course Brief History: Mr. Baez is a 67-year-old gentleman who was admitted through the emergency department for further management of bilateral pulmonary emboli. - Discharge Data Discharge Date: 11/09/17 Discharge Disposition: Home, Self-Care 01 Condition: Fair - Discharge Diagnosis/Problem(s) (1) Pulmonary emboli SNOMED Code(s): 06137165 ICD Code: I26.99 - OTHER PULMONARY EMBOLISM WITHOUT ACUTE COR PULMONALE Status: Acute Current Visit: Yes Qualifiers: Pulmonary embolism type: other Chronicity: acute Acute cor pulmonale presence: without acute cor pulmonale Qualified Code(s): I26.99 - Other pulmonary embolism without acute cor pulmonale (2) Prostate cancer metastatic to bone SNOMED Code(s): 42446205 ICD Code: C61 - MALIGNANT NEOPLASM OF PROSTATE; C79.51 - SECONDARY MALIGNANT NEOPLASM OF BONE Status: Chronic Current Visit: Yes (3) COPD (chronic obstructive pulmonary disease) SNOMED Code(s): 10995977 ICD Code: J44.9 - CHRONIC OBSTRUCTIVE PULMONARY DISEASE, UNSPECIFIED Status : Chronic Current Visit: No - Patient Summary/Data Hospital Course: Mr. Baez is a 67-year-old gentleman who is admitted through the emergency department for further management of bilateral pulmonary emboli. 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 He has received recent radiation therapy to these areas at the [facility] in [place]. He was doing fairly well following this when he is noted over the past 24 hours not feeling as well, generally more tired and perhaps slightly more short of breath. Early on the evening of admission developed abrupt onset of pleuritic pain in his right back. He presented to the emergency department for further evaluation, d-dimer was found to be elevated. CT scan of the chest shows evidence of several bilateral pulmonary emboli. He is otherwise hemodynamically stable with adequate oxygenation on room air. He has no previous history of deep vein thrombosis or pulmonary emboli, he thinks his father may have had a history of deep vein thrombosis. He was admitted to the hospital and started on IV heparin continuous infusion as well as oral anticoagulation with warfarin. After 2 days of IV heparin infusion was transitioned to subcutaneous Lovenox 120 mg once daily. On the evening of admission received warfarin 7.5 mg and again 7.5 mg following day. INR remains subtherapeutic so on the day prior to discharge she was given 10 mg of warfarin. On the day of discharge INR remains subtherapeutic at 1.4 and he will be given 12.5 mg of warfarin today. He did well throughout his hospital stay with no significant shortness of breath and only one transient episode of hypoxia. He will not require supplemental oxygen at the time of discharge. He will be given prescription for warfarin 2.5 mg tablets and will take 10 mg daily. He will also be on Lovenox 120 mg subcutaneously daily until INR has been therapeutic for a period of 48 hours. Follow-up appointment has been arranged for him with his primary care provider Dr. Keen on the day after discharge as well as an appointment in the Coumadin clinic on the day after discharge. Activity will be as tolerated and he will resume his usual diet. - Patient Instructions Diet: Usual Diet as Tolerated Activity: As Tolerated Other/Special Instructions: Patient already has appointment scheduled with Dr. Keen as well as the Coumadin clinic for November 10. Daily Lovenox injections until INR has been therapeutic for 48 hours. - Discharge Plan Prescriptions/Med Rec: Enoxaparin Sodium [Lovenox] 120 mg SQ DAILY #5 ml Warfarin [Coumadin] 10 mg PO DAILY #120 tab Home Medications: Home Meds Celecoxib [CeleBREX] 200 mg PO DAILY 08/23/15 [History] Omeprazole [Prilosec] 20 mg PO DAILY 08/23/15 [History] Sertraline [Zoloft] 50 mg PO DAILY 08/23/15 [History] Vit A/Vit C/Vit E/Zinc/Copper [Preservision Areds Softgel] 1 each PO BID [History] Enoxaparin Sodium [Lovenox] 120 mg SQ DAILY #5 ml 11/09/17 [Rx] Warfarin [Coumadin] 10 mg PO DAILY #120 tab 11/09/17 [Rx] Referrals: Michael Keen MD [Primary Care Provider] - 11/10/17 11:00 am Coumadin,Clinic [Ordering Only Provider] - 11/10/17 10:30 am - Discharge Summary/Plan Comment DC Time >30 min.: No - Patient Data Vitals - Most Recent: Last Vital Signs Temp 98 F 11/09/17 08:07 Pulse 56 L 11/09/17 08:07 Resp 18 11/09/17 08:07 BP 164/86 H 11/09/17 08:07 Pulse Ox 99 11/09/17 08:07 Weight - Most Recent: 180 lb I&O - Last 24 hours: Intake & Output 11/08/17 11/09/17 11/09/17 22:59 06:59 14:59 Intake Total 1280 Balance 1280 Lab Results - Last 24 hrs: Laboratory Results - last 24 hr 11/09/17 Range/Units 05:30 PT 15.6 H (9.5-12.0) sec INR 1.44 H (0.80-1.20) Med Orders - Current: Current Medications Acetaminophen (Tylenol) 650 mg PO Q4H PRN PRN Reason: Pain (Mild 1-3)/fever Last Admin: 11/08/17 21:15 Dose: 650 mg Celecoxib (Celebrex) 200 mg PO DAILY [facility] Last Admin: 11/09/17 08:21 Dose: 200 mg Enoxaparin Sodium (Lovenox) 120 mg SUBCUT Q24H [facility] Last Admin: 11/09/17 11:14 Dose: 120 mg Ondansetron HCl (Zofran) 4 mg IV Q4H PRN PRN Reason: Nausea/Vomiting Oxycodone HCl (Oxycodone) 10 mg PO Q4H PRN PRN Reason: Pain (moderate 4-6) Last Admin: 11/08/17 21:15 Dose: 10 mg Pantoprazole Sodium (Protonix) 40 mg PO ACBREAKFAST [facility] Last Admin: 11/09/17 08:21 Dose: 40 mg Sertraline HCl (Zoloft) 50 mg PO DAILY [facility] Last Admin: 11/09/17 08:21 Dose: 50 mg Sodium Chloride (Saline Flush) 10 ml FLUSH ASDIRECTED PRN PRN Reason: Keep Vein Open Warfarin Sodium (Coumadin) 12.5 mg PO ONETIME ONE Stop: 11/09/17 11:32 Discontinued Medications Enoxaparin Sodium (Lovenox) 80 mg SUBCUT ONETIME ONE Stop: 11/06/17 22:32 Last Admin: 11/06/17 22:46 Dose: 80 mg Lactated Ringer's (Ringers, Lactated) 1,000 mls @ 1,000 mls/hr IV BOLUS ONE Stop: 11/06/17 22:14 Last Admin: 11/06/17 21:43 Dose: 1,000 mls/hr Sodium Chloride (Normal Saline) 100 mls @ 4 mls/sec IV ASDIRECTED [facility] Last Admin: 11/06/17 22:05 Dose: 4 mls/sec Heparin Sodium/Dextrose (Heparin 25,000 Units In D5w 500 Ml) 25,000 units in 500 mls @ 26 mls/hr IV TITRATE [facility] PRN Reason: Protocol Last Admin: 11/07/17 18:15 Dose: 26 mls/hr, 26 mls/hr Lactated Ringer's (Ringers, Lactated) 1,000 mls @ 125 mls/hr IV ASDIRECTED [facility] Last Admin: 11/07/17 08:00 Dose: 125 mls/hr Iopamidol (Isovue-370 (76%)) 100 ml IV . DIRECTED [facility] Last Admin: 11/06/17 22:05 Dose: 100 ml Oxycodone/Acetaminophen (Percocet 325-5 Mg) 1 tab PO ONETIME ONE Stop: 11/06/17 20:27 Last Admin: 11/06/17 20:32 Dose: 1 tab Sodium Chloride (Saline Flush) 10 ml FLUSH ASDIRECTED PRN PRN Reason: Keep Vein Open Last Admin: 11/06/17 22:04 Dose: 10 ml Warfarin Sodium (Coumadin) 7.5 mg PO ONETIME ONE Stop: 11/06/17 23:58 Last Admin: 11/07/17 01:11 Dose: 7.5 mg Warfarin Sodium (Coumadin) 7.5 mg PO ONETIME ONE Stop: 11/07/17 13:01 Last Admin: 11/07/17 12:56 Dose: 7.5 mg Warfarin Sodium (Coumadin) 10 mg PO ONETIME ONE Stop: 11/08/17 13:01 Last Admin: 11/08/17 13:03 Dose: 10 mg - Exam Quality Assessment: Reports: DVT Prophylaxis. Denies: Supplemental Oxygen General: Reports: Alert, Oriented, Cooperative, No Acute Distress Lungs: Reports: Clear to Auscultation, Normal Respiratory Effort Cardiovascular: Reports: Regular Rate, Regular Rhythm, No Murmurs GI/Abdominal Exam: Soft, Non-Tender, No Organomegaly, No Distention *Q Meaningful Use (DIS) - VTE *Q VTE Criteria *Q: VTE Pharmacological Contraindications *Q: High INR Value - Stroke *Q Stroke Criteria *Q: - AMI *Q AMI Criteria *Q:
[2017-11-09] MEDS ORDERED: Warfarin 10 MG, Warfarin 2.5 MG PO ONE ×2 (13:00)
== END 2017-11-09 12:13 | disposition home or self-care (01) | DRG 176 ==
LOC: JP.ED 19:46 → JP.MS 23:22
PROVIDERS: ADMIT Hospitalist; ATTEND Hospitalist
DX: I26.99 Other pulmonary embolism without acute cor pulmonale (principal); C79.51 Secondary malignant neoplasm of bone; C61 Malignant neoplasm of prostate; F17.290 Nicotine dependence, other tobacco product, uncomplicated; Z87.891 Personal history of nicotine dependence; R79.1 Abnormal coagulation profile; R07.81 Pleurodynia; J44.9 Chronic obstructive pulmonary disease, unspecified; R09.02 Hypoxemia; Z92.3 Personal history of irradiation; F32.9 Major depressive disorder, single episode, unspecified; F41.9 Anxiety disorder, unspecified; M19.90 Unspecified osteoarthritis, unspecified site; K21.9 Gastro-esophageal reflux disease without esophagitis; H54.7 Unspecified visual loss; H91.90 Unspecified hearing loss, unspecified ear; Z79.01 Long term (current) use of anticoagulants
CPT/HCPCS: 36415; 71046 ×2; 71275; 80048; 85027; 85379; 86140; 96360; 99285; A9270; J1650; J7030; J7050 ×2; J7120; Q9967; 85025; 85610; 85730; 94762; 99284; J1644

== ENCOUNTER 2019-02-09 09:02 | Inpatient (IN) | payer MEDICARE, BC ==
--- NOTE | 2019-02-09 09:19 | EDM.PDOC ---
ED HPI GENERAL MEDICAL PROBLEM - General Chief Complaint: Chest Pain Stated Complaint: CHEST PAIN Time Seen by Provider: 02/09/19 09:17 Source of Information: Reports: Patient History Limitations: Reports: No Limitations - History of Present Illness INITIAL COMMENTS - FREE TEXT/NARRATIVE: pt developed chest pressure in the middle of the nite. This has been persistent. He did take 3 --325 mg asa at home at around 4 am. He has not been sweaty. pt does have a past history of pericarditis. He also had a PE 1 year ago.He has been off of coumadin for several monthes. he feels less pressure when he is sitting up. He did take 3 adult 325 mg asa at home. Onset: Other ( started in the middle of the nite. ) Duration: Hour(s):, Getting Worse Location: Reports: Chest, Other (pt is having chest pressure. ) Associated Symptoms: Reports: Chest Pain, Shortness of Breath, Other ( feels better sitting up and a little forward. ) Chest Pain Score (Numeric/FACES): 8 - Related Data Allergies Allergy/AdvReac Type Severity Reaction Status Date / Time No Known Allergies Allergy Verified 02/09/19 09:18 Home Meds: Home Meds Celecoxib [CeleBREX] 200 mg PO DAILY 08/23/15 [History] Omeprazole [Prilosec] 20 mg PO DAILY 08/23/15 [History] Sertraline [Zoloft] 50 mg PO DAILY 08/23/15 [History] Vit A/Vit C/Vit E/Zinc/Copper [Preservision Areds Softgel] 1 each PO BID [History] Past Medical History HEENT History: Reports: Hard of Hearing, Impaired Vision Cardiovascular History: Reports: High Cholesterol, Other (See Below) Other Cardiovascular History: Pericarditis many years ago Respiratory History: Reports: COPD, PE Gastrointestinal History: Reports: Chronic Diarrhea, GERD, Hemorrhoids Genitourinary History: Reports: Prostate Disorder, Retention, Urinary, Other ( See Below) Other Genitourinary History: Prostate cancer Musculoskeletal History: Reports: Osteoarthritis Psychiatric History: Reports: Anxiety, Depression Oncologic (Cancer) History: Reports: Prostate Other Oncologic History: Prostate cancer dx in 2004, 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 Currently getting radiation to that area. Sees Alejandro Higginbotham, urologist at [facility]. - Infectious Disease History Infectious Disease History: Reports: Chicken Pox - Past Surgical History HEENT Surgical History: Reports: Oral Surgery, Tonsillectomy Social & Family History - Family History Family Medical History: Noncontributory - Caffeine Use Caffeine Use: Reports: Coffee ED ROS GENERAL - Review of Systems Review Of Systems: See Below Constitutional: Reports: No Symptoms HEENT: Reports: No Symptoms Respiratory: Reports: Shortness of Breath Cardiovascular: Reports: Chest Pain, Other ( He does describe this as more of a pressure. ) Endocrine: Reports: No Symptoms GI/Abdominal: Reports: Other (pt has the sensation he would feel better if he could burp. ) : Reports: No Symptoms Musculoskeletal: Reports: No Symptoms Skin: Reports: No Symptoms ED EXAM, GENERAL - Physical Exam Exam: See Below Free Text/Narrative:: pt arrived with chest pressure that started in the middle of the nite. He stated that the pain got alot better when he did sit forward and alot worse when he would lie down. He did feel mildly sob. Exam Limited By: No Limitations General Appearance: Alert, Anxious, Moderate Distress Ears: Normal TMs Nose: Normal Inspection Throat/Mouth: Normal Inspection Head: Atraumatic Neck: Normal Inspection Respiratory/Chest: Other ( some pain with deep breathing. ) Cardiovascular: Regular Rate, Rhythm, Other (no definite rubs noted. ) GI/Abdominal: Soft, Non-Tender Rectal (Males) Exam: Deferred Back Exam: Normal Inspection Extremities: Normal Inspection Neurological: Alert, Oriented, Normal Cognition, Abnormal Reflexes Course - Vital Signs Last Recorded V/S: Last Vital Signs Temp 36.4 C 02/09/19 09:09 Pulse 66 02/09/19 12:20 Resp 22 H 02/09/19 12:20 BP 119/69 02/09/19 12:20 Pulse Ox 93 L 02/09/19 12:20 - Orders/Labs/Meds Orders: Active Orders 24 hr Category Date Time Status EKG Documentation Completion [RC] ASDIRECTED Care 02/09/19 09:14 Active Sodium Chloride 0.9% [Normal Saline] 1,000 ml Med 02/09/19 11:30 Active IV ASDIRECTED EKG 12 Lead [EK] Routine Ther 02/09/19 09:14 Ordered Medication Orders Sodium Chloride (Normal Saline) 1,000 mls @ 200 mls/hr IV ASDIRECTED ARTHUR Labs: Laboratory Tests 02/09/19 02/09/19 02/09/19 Range/Units 09:12 09:12 09:12 WBC 13.7 H (4.5-11.0) K/uL RBC 4.34 (4.30-5.90) M/uL Hgb 14.3 (12.0-15.0) g/dL Hct 43.2 (40.0-54.0) % MCV 100 H (80-98) fL MCH 33 H (27-31) pg MCHC 33 (32-36) % Plt Count 175 (150-400) K/uL Neut % (Auto) 82 H (36-66) % Lymph % (Auto) 10 L (24-44) % [place] % (Auto) 8 H (2-6) % Eos % (Auto) 0 L (2-4) % Baso % (Auto) 0 (0-1) % PT (9.5-12.0) sec INR (0.80-1.20) D-Dimer, Quantitative (0.0-400.0) ng/mL Sodium 142 (140-148) mmol/L Potassium 3.9 (3.6-5.2) mmol/L Chloride 105 (100-108) mmol/L Carbon Dioxide 23 (21-32) mmol/L Anion Gap 13.9 (5.0-14.0) mmol/L BUN 29 H (7-18) mg/dL Creatinine 1.3 (0.8-1.3) mg/dL Est Cr Clr Drug Dosing 54.24 mL/min Estimated GFR (MDRD) 55 L (>60) Glucose 115 H (74-106) mg/dL Calcium 9.3 (8.5-10.1) mg/dL Total Bilirubin 0.6 (0.2-1.0) mg/dL AST 16 (15-37) U/L ALT 21 (12-78) U/L Alkaline Phosphatase 95 (46-116) U/L Troponin I < 0.017 (0.000-0.056) ng/mL C-Reactive Protein (0.0-0.3) mg/dL Total Protein 7.1 (6.4-8.2) g/dL Albumin 3.6 (3.4-5.0) g/dL Globulin 3.5 (2.3-3.5) g/dL Albumin/Globulin Ratio 1.0 L (1.2-2.2) Urine Color Urine Appearance Urine pH (4.5-8.0) Ur Specific [place] (1.008-1.030) Urine Protein (NEGATIVE) mg/dL Urine Glucose (UA) (NEGATIVE) mg/dL Urine Ketones (NEGATIVE) mg/dL Urine Occult Blood (NEGATIVE) Urine Nitrite (NEGAITVE) Urine Bilirubin (NEGATIVE) Urine Urobilinogen (NORMAL) mg/dL Ur Leukocyte Esterase (NEGATIVE) Urine RBC (0-5) Urine WBC (0-5) Ur Epithelial Cells Amorphous Sediment Urine Bacteria Urine Mucus 02/09/19 02/09/19 02/09/19 Range/Units 09:15 09:15 09:15 WBC (4.5-11.0) K/uL RBC (4.30-5.90) M/uL Hgb (12.0-15.0) g/dL Hct (40.0-54.0) % MCV (80-98) fL MCH (27-31) pg MCHC (32-36) % Plt Count (150-400) K/uL Neut % (Auto) (36-66) % Lymph % (Auto) (24-44) % [place] % (Auto) (2-6) % Eos % (Auto) (2-4) % Baso % (Auto) (0-1) % PT 10.3 (9.5-12.0) sec INR 0.93 (0.80-1.20) D-Dimer, Quantitative 672 H (0.0-400.0) ng/mL Sodium (140-148) mmol/L Potassium (3.6-5.2) mmol/L Chloride (100-108) mmol/L Carbon Dioxide (21-32) mmol/L Anion Gap (5.0-14.0) mmol/L BUN (7-18) mg/dL Creatinine (0.8-1.3) mg/dL Est Cr Clr Drug Dosing mL/min Estimated GFR (MDRD) (>60) Glucose (74-106) mg/dL Calcium (8.5-10.1) mg/dL Total Bilirubin (0.2-1.0) mg/dL AST (15-37) U/L ALT (12-78) U/L Alkaline Phosphatase (46-116) U/L Troponin I (0.000-0.056) ng/mL C-Reactive Protein 1.51 H (0.0-0.3) mg/dL Total Protein (6.4-8.2) g/dL Albumin (3.4-5.0) g/dL Globulin (2.3-3.5) g/dL Albumin/Globulin Ratio (1.2-2.2) Urine Color Urine Appearance Urine pH (4.5-8.0) Ur Specific [place] (1.008-1.030) Urine Protein (NEGATIVE) mg/dL Urine Glucose (UA) (NEGATIVE) mg/dL Urine Ketones (NEGATIVE) mg/dL Urine Occult Blood (NEGATIVE) Urine Nitrite (NEGAITVE) Urine Bilirubin (NEGATIVE) Urine Urobilinogen (NORMAL) mg/dL Ur Leukocyte Esterase (NEGATIVE) Urine RBC (0-5) Urine WBC (0-5) Ur Epithelial Cells Amorphous Sediment Urine Bacteria Urine Mucus 02/09/19 02/09/19 Range/Units 10:05 11:56 WBC (4.5-11.0) K/uL RBC (4.30-5.90) M/uL Hgb (12.0-15.0) g/dL Hct (40.0-54.0) % MCV (80-98) fL MCH (27-31) pg MCHC (32-36) % Plt Count (150-400) K/uL Neut % (Auto) (36-66) % Lymph % (Auto) (24-44) % [place] % (Auto) (2-6) % Eos % (Auto) (2-4) % Baso % (Auto) (0-1) % PT (9.5-12.0) sec INR (0.80-1.20) D-Dimer, Quantitative (0.0-400.0) ng/mL Sodium (140-148) mmol/L Potassium (3.6-5.2) mmol/L Chloride (100-108) mmol/L Carbon Dioxide (21-32) mmol/L Anion Gap (5.0-14.0) mmol/L BUN (7-18) mg/dL Creatinine (0.8-1.3) mg/dL Est Cr Clr Drug Dosing mL/min Estimated GFR (MDRD) (>60) Glucose (74-106) mg/dL Calcium (8.5-10.1) mg/dL Total Bilirubin (0.2-1.0) mg/dL AST (15-37) U/L ALT (12-78) U/L Alkaline Phosphatase (46-116) U/L Troponin I < 0.017 (0.000-0.056) ng/mL C-Reactive Protein (0.0-0.3) mg/dL Total Protein (6.4-8.2) g/dL Albumin (3.4-5.0) g/dL Globulin (2.3-3.5) g/dL Albumin/Globulin Ratio (1.2-2.2) Urine Color Yellow Urine Appearance Other Urine pH 6.0 (4.5-8.0) Ur Specific [place] 1.015 (1.008-1.030) Urine Protein Negative (NEGATIVE) mg/dL Urine Glucose (UA) Normal (NEGATIVE) mg/dL Urine Ketones Negative (NEGATIVE) mg/dL Urine Occult Blood Negative (NEGATIVE) Urine Nitrite Negative (NEGAITVE) Urine Bilirubin Negative (NEGATIVE) Urine Urobilinogen Normal (NORMAL) mg/dL Ur Leukocyte Esterase Negative (NEGATIVE) Urine RBC Not seen (0-5) Urine WBC Not seen (0-5) Ur Epithelial Cells Not seen Amorphous Sediment Rare Urine Bacteria Not seen Urine Mucus Rare Meds: Medications Generic Name Dose Route Start Last Admin Trade Name Freq PRN Reason Stop Dose Admin Sodium Chloride 1,000 mls @ 200 mls/hr 02/09/19 11:30 Normal Saline IV ASDIRECTED ARTHUR Discontinued Medications Generic Name Dose Route Start Last Admin Trade Name Freq PRN Reason Stop Dose Admin Al Hydroxide/Mg Hydroxide 15 0 ml 02/09/19 10:10 02/09/19 10:13 ml/ Lidocaine HCl 15 ml PO 02/09/19 10:11 30 ml ONETIME ONE Administration Hydromorphone HCl 0.5 mg 02/09/19 11:08 02/09/19 11:18 Dilaudid IVPUSH 02/09/19 11:09 0.5 mg ONETIME ONE Administration Sodium Chloride 100 mls @ 0 mls/hr 02/09/19 10:30 02/09/19 11:31 Normal Saline IV 02/09/19 10:31 4 mls/hr ASDIRECTED ARTHUR Administration KVO Iopamidol 100 ml 02/09/19 10:30 02/09/19 11:30 Isovue-370 (76%) IV 02/09/19 10:31 100 ml . DIRECTED ARTHUR Administration Ketorolac Tromethamine 30 mg 02/09/19 11:09 02/09/19 11:16 Toradol IVPUSH 02/09/19 11:10 30 mg ONETIME ONE Administration Nitroglycerin 0.4 mg 02/09/19 09:47 02/09/19 10:11 Nitrostat SL 0.4 mg Q5M PRN Administration Chest Pain Sodium Chloride 10 ml 02/09/19 10:29 02/09/19 11:31 Saline Flush FLUSH 02/09/19 10:30 10 ml ONETIME ONE Administration - Re-Assessments/Exams Free Text/Narrative Re-Assessment/Exam: 02/09/19 11:46 Pt did have some st elevation anterior, He did have a neg angio of the chest. His first trop was normal. He does have a past history of pericarditis and it did feel similar. Departure - Departure Time of Disposition: 13:37 Disposition: Admitted As Inpatient 67 Condition: Fair Clinical Impression: Pericarditis Referrals: PCP,None [Primary Care Provider] - Forms: ED Department Discharge Care Plan Goals: admit to Dr Patel - My Orders Last 24 Hours: My Active Orders 02/09/19 09:14 EKG Documentation Completion [RC] ASDIRECTED EKG 12 Lead [EK] Routine 02/09/19 11:30 Sodium Chloride 0.9% [Normal Saline] 1,000 ml IV ASDIRECTED - Assessment/Plan Last 24 Hours: My Active Orders 02/09/19 09:14 EKG Documentation Completion [RC] ASDIRECTED EKG 12 Lead [EK] Routine 02/09/19 11:30 Sodium Chloride 0.9% [Normal Saline] 1,000 ml IV ASDIRECTED
--- NOTE | 2019-02-09 09:53 | CRLCR ---
INDICATION: Chest pain. TECHNIQUE: AP upright portable chest. COMPARISON: Correlation is made with a noncontrast low dose chest CT October 16, 2018. FINDINGS: Mild emphysematous type change with hyperinflation and attenuation of the pulmonary vascularity. No infiltrate, nodule, and no pleural effusion identified. Normal heart size. The included skeleton is unremarkable. IMPRESSION: Mild emphysematous type change. No acute cardiopulmonary process identified. Dictated by Asa Arteaga MD @ Feb 09 2019 9:52AM Signed by Dr. Asa Arteaga @ Feb 09 2019 9:52AM
[2019-02-09] MEDS: Nitroglycerin 0.4 MG Tab.SL SL PRN ×3 (10:01→10:11)
[2019-02-09] MEDS ORDERED: Alum Hydrox/Mag Hydrox/Simeth 15 ML, Lidocaine 2% 15 ML PO ONE ×2 (10:10)
[2019-02-09] MEDS ORDERED: Sodium Chloride 0.9% 10 ML Syringe FLUSH ONE (10:29)
[2019-02-09] MEDS ORDERED: Sodium Chloride 0.9% 100 ML IV SCH (10:30)
[2019-02-09] MEDS ORDERED: Iopamidol 755 Mg/ML 100 ML Bottle IV SCH (10:30)
[2019-02-09] MEDS ORDERED: HYDROmorphone 0.5 MG/0.5 ML Syringe IVPUSH ONE (11:08)
[2019-02-09] MEDS ORDERED: Ketorolac 30 MG/ML SDV IVPUSH ONE (11:09)
--- NOTE | 2019-02-09 11:22 | CRLCT ---
INDICATION: Chest pain and chest pressure. History of pulmonary emboli identified on a previous CT November 06, 2017. TECHNIQUE: Contrast-enhanced chest CT performed using the angiographic protocol. 80 cc nonionic Isovue-370 administered. COMPARISON: April 03, 2018. FINDINGS: There is good opacification of the pulmonary arterial tree. No filling defects identified to indicate acute pulmonary emboli. No thoracic aortic aneurysm. No pleural or pericardial effusions. Emphysematous changes. Minor curvilinear fibrosis or atelectasis at the lung bases. Atelectasis is favored. No thoracic lymphadenopathy. The trachea and mainstem bronchi are patent and clear. The included thyroid gland is normal. Incidental note is made of some coronary artery calcification. Normal adrenal glands. No splenomegaly. IMPRESSION: 1. No evidence for acute pulmonary emboli. 2. Emphysematous type change. No evidence for congestive heart failure or active pneumonia. 3. Vascular calcification in the chest and upper abdomen. Please note that all CT scans at this facility use dose modulation, iterative reconstruction, and/or weight-based dosing when appropriate to reduce radiation dose to as low as reasonably achievable. Dictated by Asa Arteaga MD @ Feb 09 2019 11:15AM Signed by Dr. Asa Arteaga @ Feb 09 2019 11:22AM
[2019-02-09] MEDS ORDERED: Sodium Chloride 0.9% 1,000 ML IV SCH (11:30)
[2019-02-09] MEDS ORDERED: Ondansetron 4 MG/2 ML SDV IV PRN (14:04)
[2019-02-09] MEDS ORDERED: Acetaminophen 325 MG Tab PO PRN (14:04)
[2019-02-09] MEDS ORDERED: Albuterol 0.083% 2.5 MG/3 ML Neb Soln NEB PRN (14:04)
[2019-02-09] MEDS ORDERED: Sodium Chloride 0.9% 10 ML Syringe FLUSH PRN (14:04)
[2019-02-09] MEDS ORDERED: Polyethylene Glycol 3350 Powder 17 GM Packet PO PRN (14:04)
[2019-02-09] MEDS: Colchicine 0.6 MG Tab PO SCH ×2 (14:09→20:41)
[2019-02-09] MEDS: Ibuprofen 600 MG Tab PO SCH ×2 (14:09→21:51)
[2019-02-09] MEDS: Sodium Chloride 0.9% 1,000 ML IV SCH ×2 (14:19→21:52)
--- NOTE | 2019-02-09 15:19 | PCM.HP ---
H&P History of Present Illness - General Date of Service: 02/09/19 Admit Problem/Dx: Admission Diagnosis/Problem Admission Diagnosis/Problem Pericarditis Source of Information: Patient, Provider, RN Notes Reviewed History Limitations: Reports: No Limitations - History of Present Illness Initial Comments - Free Text/Narative: Mr. Baez is a 68-year-old gentleman who was admitted through the emergency department with chest pain, thought to be secondary to pericarditis. He reports he previous history of 2 episodes of pericarditis occurring many years ago. He was feeling well until last night when he noted onset of a pressure heaviness in his central chest that didn't radiate into his neck and jaw. Pain would become worse with a deep breath and with lying supine. Pain improved with sitting up and leaning forward. Symptoms are similar to what he experienced with his previous episodes pericarditis. EKG does show evidence of ST segment elevation in the anterior leads. Pain has been persistent since last night, initial troponin level as well as a follow-up troponin level obtained a few hours after initial presentation are within normal range. CT scan of the chest with PE protocol was obtained showing no evidence of pulmonary embolism and no obvious cardiac abnormalities. Pain did improve at home after he had taken 2 aspirin. Chest Pain Score (Numeric/FACES): 5 - Related Data Allergies/Adverse Reactions: Allergies Allergy/AdvReac Type Severity Reaction Status Date / Time No Known Allergies Allergy Verified 02/09/19 09:18 Home Medications: Home Meds Celecoxib [CeleBREX] 200 mg PO DAILY 08/23/15 [History] Omeprazole [Prilosec] 20 mg PO DAILY 08/23/15 [History] Sertraline [Zoloft] 50 mg PO DAILY 08/23/15 [History] Vit A/Vit C/Vit E/Zinc/Copper [Preservision Areds Softgel] 1 each PO BID [History] Past Medical History HEENT History: Reports: Hard of Hearing, Impaired Vision Cardiovascular History: Reports: High Cholesterol, Other (See Below) Other Cardiovascular History: Pericarditis many years ago Respiratory History: Reports: COPD, PE Gastrointestinal History: Reports: Chronic Diarrhea, GERD, Hemorrhoids Genitourinary History: Reports: Prostate Disorder, Retention, Urinary, Other ( See Below) Other Genitourinary History: Prostate cancer Musculoskeletal History: Reports: Osteoarthritis Psychiatric History: Reports: Anxiety, Depression Hematologic History: Reports: Other (See Below) Other Hematologic History: lymes Oncologic (Cancer) History: Reports: Prostate Other Oncologic History: Prostate cancer dx in 2004, 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 Currently getting radiation to that area. Seefany Higginbotham, urologist at [facility]. - Infectious Disease History Infectious Disease History: Reports: Chicken Pox - Past Surgical History HEENT Surgical History: Reports: Oral Surgery, Tonsillectomy Social & Family History - Family History Family Medical History: Noncontributory - Tobacco Use Smoking Status *Q: Current Every Day Smoker Years of Tobacco use: 20 Packs/Tins Daily: 0.5 Tobacco Use Comment: quit many time on and off smoker - Caffeine Use Caffeine Use: Reports: Coffee - Recreational Drug Use Recreational Drug Use: No Recreational Drug Type: Reports: Marijuana/Hashish H&P Review of Systems - Review of Systems: Review Of Systems: See Below General: Denies: Fever, Chills, Weakness HEENT: Reports: No Symptoms Pulmonary: Reports: No Symptoms Cardiovascular: Reports: Chest Pain, Dyspnea on Exertion. Denies: Palpitations , Orthopnea, PND, Edema, Lightheadedness, Syncope Gastrointestinal: Reports: No Symptoms Genitourinary: Reports: No Symptoms Musculoskeletal: Reports: No Symptoms Skin: Reports: No Symptoms Psychiatric: Reports: No Symptoms Neurological: Reports: No Symptoms Hematologic/Lymphatic: Reports: No Symptoms Immunologic: Reports: No Symptoms Exam - Exam Exam: See Below - Vital Signs Vital Signs: Last Vital Signs Temp 98 F 02/09/19 14:20 Pulse 60 02/09/19 14:06 Resp 12 02/09/19 14:20 BP 119/74 02/09/19 14:20 Pulse Ox 94 L 02/09/19 14:20 Weight: 175 lb - Exam Quality Assessment: DVT Prophylaxis General: Alert, Oriented, Cooperative, Moderate Distress HEENT: Conjunctiva Clear, Hearing Intact, Mucosa Moist & [place], Normal Nasal Septum, Posterior Pharynx Clear, Pupils Equal Neck: Supple, Trachea Midline, +2 Carotid Pulse wo Bruit Lungs: Clear to Auscultation, Normal Respiratory Effort Cardiovascular: Regular Rate, Regular Rhythm, Normal S1, Normal S2. No: Systolic Murmur, Diastolic Murmur, Rubs GI/Abdominal Exam: Soft, Non-Tender, No Organomegaly, No Distention Back Exam: Normal Inspection, Full Range of Motion Extremities: Non-Tender, No Pedal Edema Skin: Warm, Dry, Intact Neurological: Cranial Nerves Intact, Strength Equal Bilateral, Normal Speech, Normal Tone, Sensation Intact. No: Focal Deficit Neuro Extensive - Mental Status: Alert, Oriented x3, Normal Mood/Affect, Normal Cognition, Memory Intact - Patient Data Lab Results Last 24 hrs: Laboratory Results - last 24 hr 02/09/19 02/09/19 02/09/19 Range/Units 09:12 09:12 09:12 WBC 13.7 H (4.5-11.0) K/uL RBC 4.34 (4.30-5.90) M/uL Hgb 14.3 (12.0-15.0) g/dL Hct 43.2 (40.0-54.0) % MCV 100 H (80-98) fL MCH 33 H (27-31) pg MCHC 33 (32-36) % Plt Count 175 (150-400) K/uL Neut % (Auto) 82 H (36-66) % Lymph % (Auto) 10 L (24-44) % Smith % (Auto) 8 H (2-6) % Eos % (Auto) 0 L (2-4) % Baso % (Auto) 0 (0-1) % PT (9.5-12.0) sec INR (0.80-1.20) D-Dimer, Quantitative (0.0-400.0) ng/mL Sodium 142 (140-148) mmol/L Potassium 3.9 (3.6-5.2) mmol/L Chloride 105 (100-108) mmol/L Carbon Dioxide 23 (21-32) mmol/L Anion Gap 13.9 (5.0-14.0) mmol/L BUN 29 H (7-18) mg/dL Creatinine 1.3 (0.8-1.3) mg/dL Est Cr Clr Drug Dosing 54.24 mL/min Estimated GFR (MDRD) 55 L (>60) Glucose 115 H (74-106) mg/dL Calcium 9.3 (8.5-10.1) mg/dL Total Bilirubin 0.6 (0.2-1.0) mg/dL AST 16 (15-37) U/L ALT 21 (12-78) U/L Alkaline Phosphatase 95 (46-116) U/L Troponin I < 0.017 (0.000-0.056) ng/mL C-Reactive Protein (0.0-0.3) mg/dL Total Protein 7.1 (6.4-8.2) g/dL Albumin 3.6 (3.4-5.0) g/dL Globulin 3.5 (2.3-3.5) g/dL Albumin/Globulin Ratio 1.0 L (1.2-2.2) Urine Color Urine Appearance Urine pH (4.5-8.0) Ur Specific [employer] (1.008-1.030) Urine Protein (NEGATIVE) mg/dL Urine Glucose (UA) (NEGATIVE) mg/dL Urine Ketones (NEGATIVE) mg/dL Urine Occult Blood (NEGATIVE) Urine Nitrite (NEGAITVE) Urine Bilirubin (NEGATIVE) Urine Urobilinogen (NORMAL) mg/dL Ur Leukocyte Esterase (NEGATIVE) Urine RBC (0-5) Urine WBC (0-5) Ur Epithelial Cells Amorphous Sediment Urine Bacteria Urine Mucus 02/09/19 02/09/19 02/09/19 Range/Units 09:15 09:15 09:15 WBC (4.5-11.0) K/uL RBC (4.30-5.90) M/uL Hgb (12.0-15.0) g/dL Hct (40.0-54.0) % MCV (80-98) fL MCH (27-31) pg MCHC (32-36) % Plt Count (150-400) K/uL Neut % (Auto) (36-66) % Lymph % (Auto) (24-44) % Smith % (Auto) (2-6) % Eos % (Auto) (2-4) % Baso % (Auto) (0-1) % PT 10.3 (9.5-12.0) sec INR 0.93 (0.80-1.20) D-Dimer, Quantitative 672 H (0.0-400.0) ng/mL Sodium (140-148) mmol/L Potassium (3.6-5.2) mmol/L Chloride (100-108) mmol/L Carbon Dioxide (21-32) mmol/L Anion Gap (5.0-14.0) mmol/L BUN (7-18) mg/dL Creatinine (0.8-1.3) mg/dL Est Cr Clr Drug Dosing mL/min Estimated GFR (MDRD) (>60) Glucose (74-106) mg/dL Calcium (8.5-10.1) mg/dL Total Bilirubin (0.2-1.0) mg/dL AST (15-37) U/L ALT (12-78) U/L Alkaline Phosphatase (46-116) U/L Troponin I (0.000-0.056) ng/mL C-Reactive Protein 1.51 H (0.0-0.3) mg/dL Total Protein (6.4-8.2) g/dL Albumin (3.4-5.0) g/dL Globulin (2.3-3.5) g/dL Albumin/Globulin Ratio (1.2-2.2) Urine Color Urine Appearance Urine pH (4.5-8.0) Ur Specific [employer] (1.008-1.030) Urine Protein (NEGATIVE) mg/dL Urine Glucose (UA) (NEGATIVE) mg/dL Urine Ketones (NEGATIVE) mg/dL Urine Occult Blood (NEGATIVE) Urine Nitrite (NEGAITVE) Urine Bilirubin (NEGATIVE) Urine Urobilinogen (NORMAL) mg/dL Ur Leukocyte Esterase (NEGATIVE) Urine RBC (0-5) Urine WBC (0-5) Ur Epithelial Cells Amorphous Sediment Urine Bacteria Urine Mucus 02/09/19 02/09/19 Range/Units 10:05 11:56 WBC (4.5-11.0) K/uL RBC (4.30-5.90) M/uL Hgb (12.0-15.0) g/dL Hct (40.0-54.0) % MCV (80-98) fL MCH (27-31) pg MCHC (32-36) % Plt Count (150-400) K/uL Neut % (Auto) (36-66) % Lymph % (Auto) (24-44) % Smith % (Auto) (2-6) % Eos % (Auto) (2-4) % Baso % (Auto) (0-1) % PT (9.5-12.0) sec INR (0.80-1.20) D-Dimer, Quantitative (0.0-400.0) ng/mL Sodium (140-148) mmol/L Potassium (3.6-5.2) mmol/L Chloride (100-108) mmol/L Carbon Dioxide (21-32) mmol/L Anion Gap (5.0-14.0) mmol/L BUN (7-18) mg/dL Creatinine (0.8-1.3) mg/dL Est Cr Clr Drug Dosing mL/min Estimated GFR (MDRD) (>60) Glucose (74-106) mg/dL Calcium (8.5-10.1) mg/dL Total Bilirubin (0.2-1.0) mg/dL AST (15-37) U/L ALT (12-78) U/L Alkaline Phosphatase (46-116) U/L Troponin I < 0.017 (0.000-0.056) ng/mL C-Reactive Protein (0.0-0.3) mg/dL Total Protein (6.4-8.2) g/dL Albumin (3.4-5.0) g/dL Globulin (2.3-3.5) g/dL Albumin/Globulin Ratio (1.2-2.2) Urine Color Yellow Urine Appearance Other Urine pH 6.0 (4.5-8.0) Ur Specific [employer] 1.015 (1.008-1.030) Urine Protein Negative (NEGATIVE) mg/dL Urine Glucose (UA) Normal (NEGATIVE) mg/dL Urine Ketones Negative (NEGATIVE) mg/dL Urine Occult Blood Negative (NEGATIVE) Urine Nitrite Negative (NEGAITVE) Urine Bilirubin Negative (NEGATIVE) Urine Urobilinogen Normal (NORMAL) mg/dL Ur Leukocyte Esterase Negative (NEGATIVE) Urine RBC Not seen (0-5) Urine WBC Not seen (0-5) Ur Epithelial Cells Not seen Amorphous Sediment Rare Urine Bacteria Not seen Urine Mucus Rare Result Diagrams: 02/09/19 09:12 02/09/19 09:12 *Q Meaningful Use (ADM) - VTE *Q VTE Pharmacological Contraindications *Q: Risk of Bleeding - VTE Risk Assess *Q Each Risk Factor Represents 1 Point: Obesity ( BMI > 25 kg/m2), Abnormal Pulmonary Function (COPD) Total Score 1 Point Risk Factors: 2 Each Risk Factor Represents 2 Points: Age 60 - 74 Years Total Score 2 Point Risk Factors: 2 Each Risk Factor Represents 3 Points: None Total Score 3 Point Risk Factors: 0 Each Risk Factor Represents 5 Points: None Total Score 5 Point Risk Factors: 0 Venous Thromboembolism Risk Factor Score *Q: 4 Problem List Initiated/Reviewed/Updated: Yes Orders Last 24hrs: Active Orders 24 hr Category Date Time Status Patient Status [ADT] Routine ADT 02/09/19 14:04 Active Ambulate [RC] QID Care 02/09/19 14:04 Active Cardiac Monitoring [RC] .As Directed Care 02/09/19 14:04 Active Height and Weight [RC] DAILY Care 02/09/19 14:04 Active Intake and Output [RC] QSHIFT Care 02/09/19 14:04 Active Notify Provider Vital Signs [RC] ASDIRECTED Care 02/09/19 14:04 Active Oxygen Therapy [RC] PRN Care 02/09/19 14:04 Active Peripheral IV Care [RC] . DIRECTED Care 02/09/19 14:04 Active RT Aerosol Therapy [RC] ASDIRECTED Care 02/09/19 14:04 Active Up ad Elyssa [RC] ASDIRECTED Care 02/09/19 14:04 Active Up to Chair [RC] QID Care 02/09/19 14:04 Active Vital Signs [RC] Q4H Care 02/09/19 14:04 Active Regular Diet [DIET] Diet 02/09/19 Lunch Active Echo Comp wo Cont [US] Stat Exams 02/09/19 13:42 Ordered BASIC METABOLIC PANEL,BMP [CHEM] AM Lab 02/10/19 05:11 Ordered CBC WITH AUTO DIFF [HEME] AM Lab 02/10/19 05:11 Ordered TROPONIN I [CHEM] Stat Lab 02/09/19 18:00 Ordered Acetaminophen [Tylenol] Med 02/09/19 14:04 Active 650 mg PO Q4H PRN Albuterol [Proventil Neb Soln] Med 02/09/19 14:04 Active 2.5 mg NEB Q4H PRN Colchicine [Colcrys] Med 02/10/19 09:00 Active 0.6 mg PO BID Colchicine [Colcrys] Med 02/09/19 13:45 Active 1.2 mg PO BID Ibuprofen [Motrin] Med 02/09/19 14:00 Active 600 mg PO Q8H Ondansetron [Zofran] Med 02/09/19 14:04 Active 4 mg IV Q4H PRN Pantoprazole [ProTONIX] Med 02/10/19 07:30 Active 40 mg PO DAILY@0730 Polyethylene Glycol 3350 [MiraLAX] Med 02/09/19 14:04 Active 17 gm PO DAILY PRN Sertraline [Zoloft] Med 02/10/19 09:00 Active 50 mg PO DAILY Sodium Chloride 0.9% [Normal Saline] 1,000 ml Med 02/09/19 14:04 Active IV ASDIRECTED Sodium Chloride 0.9% [Saline Flush] Med 02/09/19 14:04 Active 10 ml FLUSH ASDIRECTED PRN Peripheral IV Insertion Adult [OM.PC] Routine Oth 02/09/19 14:04 Ordered Sequential Compression Device [OM.PC] Per Unit Routine Oth 02/09/19 14:04 Ordered VTE Pharmacological Contraindications [AST] Per Unit Oth 02/09/19 14:04 Ordered Routine Resuscitation Status Routine Resus Stat 02/09/19 13:45 Ordered EKG 12 Lead [EK] Routine Ther 02/09/19 09:14 Stop Req Medication Orders Acetaminophen (Tylenol) 650 mg PO Q4H PRN PRN Reason: Pain (Mild 1-3)/fever Albuterol (Proventil Neb Soln) 2.5 mg NEB Q4H PRN PRN Reason: Shortness Of Breath/wheezing Colchicine (Colcrys) 1.2 mg PO BID [facility] Stop: 02/09/19 21:01 Last Admin: 02/09/19 14:09 Dose: 1.2 mg Colchicine (Colcrys) 0.6 mg PO BID [facility] Sodium Chloride (Normal Saline) 1,000 mls @ 125 mls/hr IV ASDIRECTED [facility] Last Admin: 02/09/19 14:19 Dose: 125 mls/hr Ibuprofen (Motrin) 600 mg PO Q8H [facility] Last Admin: 02/09/19 14:09 Dose: 600 mg Ondansetron HCl (Zofran) 4 mg IV Q4H PRN PRN Reason: Nausea/Vomiting Pantoprazole Sodium (Protonix) 40 mg PO DAILY@0730 [facility] Polyethylene Glycol (Miralax) 17 gm PO DAILY PRN PRN Reason: Constipation Sertraline HCl (Zoloft) 50 mg PO DAILY [facility] Sodium Chloride (Saline Flush) 10 ml FLUSH ASDIRECTED PRN PRN Reason: Keep Vein Open Assessment/Plan Comment:: ASSESSMENT AND PLAN PERICARDITIS-most likely cause of current chest pain, similar to previous episodes that he has experienced. No evidence thus far of myocardial infarction or ischemia. -Serial troponin levels -Ibuprofen 600 mg by mouth every 8 hours -Colchicine 1.2 mg by mouth twice a day today, then 0.6 mg twice daily thereafter -Echocardiogram when available COPD-currently stable and essentially asymptomatic. PROSTATE CANCER-known metastasis to bone, currently receiving therapy HISTORY OF PREVIOUS PULMONARY EMBOLI-no evidence of pulmonary emboli noted on CT scan of the chest MAINTENANCE ISSUES -DVT prophylaxis; scuds -GI prophylaxis; continue outpatient PPI therapy -Caruso catheter; not indicated -Nutrition; regular diet -Nicotine dependence; not required CODE STATUS-FULL CODE ADMISSION STATUS-patient will be admitted to inpatient status, expect at least a 2 night hospital stay for evaluation and management of problems as outlined above. At the time of this admission I do not reasonably expected evaluation and management of this problem will require more than a 96 hour hospital stay. DISPOSITION-anticipate discharge to home after the hospital stay. PRIMARY CARE PROVIDER-
[2019-02-09] MEDS: HYDROmorphone 0.5 MG/0.5 ML Syringe IVPUSH PRN (20:42)
[2019-02-10] MEDS: HYDROmorphone 0.5 MG/0.5 ML Syringe IVPUSH PRN (03:06)
[2019-02-10] MEDS: Ibuprofen 600 MG Tab PO SCH (05:43)
[2019-02-10] MEDS: Sodium Chloride 0.9% 1,000 ML IV SCH (05:44)
[2019-02-10] MEDS ORDERED: Pantoprazole 40 MG Tab.CR PO SCH (07:30)
[2019-02-10 08:15] VITALS: BP 146/74
[2019-02-10] MEDS ORDERED: Sertraline 50 MG Tab PO SCH (09:00)
[2019-02-10] MEDS ORDERED: Colchicine 0.6 MG Tab PO SCH (09:00)
--- NOTE | 2019-02-10 09:34 | PCM.DCSUM1 ---
Discharge Summary - Hospital Course Brief History: Mr. Baez is a 68-year-old gentleman who was admitted through the emergency department with chest pain secondary to pericarditis. - Discharge Data Discharge Date: 02/10/19 Discharge Disposition: Home, Self-Care 01 Condition: Fair - Discharge Diagnosis/Problem(s) (1) Pericarditis SNOMED Code(s): 2583073 ICD Code: I31.9 - DISEASE OF PERICARDIUM, UNSPECIFIED Status: Acute Current Visit: Yes (2) Prostate cancer metastatic to bone SNOMED Code(s): 364333793 ICD Code: C61 - MALIGNANT NEOPLASM OF PROSTATE; C79.51 - SECONDARY MALIGNANT NEOPLASM OF BONE Status: Chronic Current Visit: No (3) COPD (chronic obstructive pulmonary disease) SNOMED Code(s): 54490077 ICD Code: J44.9 - CHRONIC OBSTRUCTIVE PULMONARY DISEASE, UNSPECIFIED Status : Chronic Current Visit: No - Patient Summary/Data Hospital Course: Mr. Baez is a 68-year-old gentleman who was admitted through the emergency department with chest pain, thought to be secondary to pericarditis. He reports he previous history of 2 episodes of pericarditis occurring many years ago. He was feeling well until last night when he noted onset of a pressure heaviness in his central chest that radiated into his neck and jaw. Pain would become worse with a deep breath and with lying supine. Pain improved with sitting up and leaning forward. Symptoms are similar to what he experienced with his previous episodes pericarditis. EKG does show evidence of ST segment elevation in the anterior leads. Pain has been persistent since last night, initial troponin level as well as a follow-up troponin level obtained a few hours after initial presentation are within normal range. CT scan of the chest with PE protocol was obtained showing no evidence of pulmonary embolism and no obvious cardiac abnormalities. Pain did improve at home after he had taken 2 aspirin. On admission he was given IV fluids for hydration and was started on oral ibuprofen as well as Colchicine. On the first day of therapy he did receive a loading dose of colchicine at 1.2 mg every 12 hours for a total of 2 doses. He was then transitioned to maintenance dose at 0.6 mg twice daily. Ibuprofen was initiated at 600 mg every 8 hours. He also received IV Dilaudid as needed for pain during the first 24 hours. Serial troponin levels were obtained and remained within normal range. By the morning after admission he was feeling significantly improved with almost total resolution of his chest pain. He was admitted to inpatient status but improve more quickly than originally expected and will be discharged home after only one night. He will remain on ibuprofen 600 mg every 8 hours for one week. He is instructed to take the ibuprofen with food. He will hold his dose of Celebrex while he is taking the ibuprofen. Colchicine will be continued at 0.6 mg twice daily for 2 months. Follow-up appointment will be scheduled with his primary care provider within one week. Activity will be as tolerated and he will resume his usual diet. He will return to the emergency department if he notes any recurrent symptoms of chest pain or pressure. - Patient Instructions Diet: Usual Diet as Tolerated Activity: As Tolerated Other/Special Instructions: Please schedule follow-up appointment with Dr. Keen within one week. Ibuprofen 600 mg every 8 hours for one week, hold Celebrex while taking ibuprofen. Colchicine 0.6 mg twice daily for 2 months. - Discharge Plan *PRESCRIPTION DRUG MONITORING PROGRAM REVIEWED*: Not Applicable *COPY OF PRESCRIPTION DRUG MONITORING REPORT IN PATIENT PARISH: Not Applicable Prescriptions/Med Rec: Colchicine 0.6 mg PO BID #60 tablet Ibuprofen [Motrin] 600 mg PO Q8H #21 tablet Home Medications: Home Meds Omeprazole [Prilosec] 20 mg PO DAILY 08/23/15 [History] Sertraline [Zoloft] 50 mg PO DAILY 08/23/15 [History] Vit A/Vit C/Vit E/Zinc/Copper [Preservision Areds Softgel] 1 each PO BID [History] Colchicine 0.6 mg PO BID #60 tablet 02/10/19 [Rx] Ibuprofen [Motrin] 600 mg PO Q8H #21 tablet 02/10/19 [Rx] Referrals: Michael Keen MD [Physician] - - Discharge Summary/Plan Comment DC Time >30 min.: No - Patient Data Vitals - Most Recent: Last Vital Signs Temp 97.9 F 02/10/19 08:00 Pulse 53 L 02/10/19 05:45 Resp 19 02/10/19 08:00 BP 146/74 H 02/10/19 08:00 Pulse Ox 94 L 02/10/19 08:00 Weight - Most Recent: 175 lb I&O - Last 24 hours: Intake & Output 02/09/19 02/10/19 02/10/19 22:59 06:59 14:59 Intake Total 800 1992 Output Total 475 225 Balance 325 1768 Lab Results - Last 24 hrs: Laboratory Results - last 24 hr 02/09/19 02/09/19 02/09/19 Range/Units 09:12 09:12 09:15 WBC (4.5-11.0) K/uL RBC (4.30-5.90) M/uL Hgb (12.0-15.0) g/dL Hct (40.0-54.0) % MCV (80-98) fL MCH (27-31) pg MCHC (32-36) % Plt Count (150-400) K/uL Neut % (Auto) (36-66) % Lymph % (Auto) (24-44) % [place] % (Auto) (2-6) % Eos % (Auto) (2-4) % Baso % (Auto) (0-1) % PT 10.3 (9.5-12.0) sec INR 0.93 (0.80-1.20) D-Dimer, Quantitative (0.0-400.0) ng/mL Sodium 142 (140-148) mmol/L Potassium 3.9 (3.6-5.2) mmol/L Chloride 105 (100-108) mmol/L Carbon Dioxide 23 (21-32) mmol/L Anion Gap 13.9 (5.0-14.0) mmol/L BUN 29 H (7-18) mg/dL Creatinine 1.3 (0.8-1.3) mg/dL Est Cr Clr Drug Dosing 54.24 mL/min Estimated GFR (MDRD) 55 L (>60) Glucose 115 H (74-106) mg/dL Calcium 9.3 (8.5-10.1) mg/dL Total Bilirubin 0.6 (0.2-1.0) mg/dL AST 16 (15-37) U/L ALT 21 (12-78) U/L Alkaline Phosphatase 95 (46-116) U/L Troponin I < 0.017 (0.000-0.056) ng/mL C-Reactive Protein (0.0-0.3) mg/dL Total Protein 7.1 (6.4-8.2) g/dL Albumin 3.6 (3.4-5.0) g/dL Globulin 3.5 (2.3-3.5) g/dL Albumin/Globulin Ratio 1.0 L (1.2-2.2) Urine Color Urine Appearance Urine pH (4.5-8.0) Ur Specific [place] (1.008-1.030) Urine Protein (NEGATIVE) mg/dL Urine Glucose (UA) (NEGATIVE) mg/dL Urine Ketones (NEGATIVE) mg/dL Urine Occult Blood (NEGATIVE) Urine Nitrite (NEGAITVE) Urine Bilirubin (NEGATIVE) Urine Urobilinogen (NORMAL) mg/dL Ur Leukocyte Esterase (NEGATIVE) Urine RBC (0-5) Urine WBC (0-5) Ur Epithelial Cells Amorphous Sediment Urine Bacteria Urine Mucus 02/09/19 02/09/19 02/09/19 Range/Units 09:15 09:15 10:05 WBC (4.5-11.0) K/uL RBC (4.30-5.90) M/uL Hgb (12.0-15.0) g/dL Hct (40.0-54.0) % MCV (80-98) fL MCH (27-31) pg MCHC (32-36) % Plt Count (150-400) K/uL Neut % (Auto) (36-66) % Lymph % (Auto) (24-44) % [place] % (Auto) (2-6) % Eos % (Auto) (2-4) % Baso % (Auto) (0-1) % PT (9.5-12.0) sec INR (0.80-1.20) D-Dimer, Quantitative 672 H (0.0-400.0) ng/mL Sodium (140-148) mmol/L Potassium (3.6-5.2) mmol/L Chloride (100-108) mmol/L Carbon Dioxide (21-32) mmol/L Anion Gap (5.0-14.0) mmol/L BUN (7-18) mg/dL Creatinine (0.8-1.3) mg/dL Est Cr Clr Drug Dosing mL/min Estimated GFR (MDRD) (>60) Glucose (74-106) mg/dL Calcium (8.5-10.1) mg/dL Total Bilirubin (0.2-1.0) mg/dL AST (15-37) U/L ALT (12-78) U/L Alkaline Phosphatase (46-116) U/L Troponin I (0.000-0.056) ng/mL C-Reactive Protein 1.51 H (0.0-0.3) mg/dL Total Protein (6.4-8.2) g/dL Albumin (3.4-5.0) g/dL Globulin (2.3-3.5) g/dL Albumin/Globulin Ratio (1.2-2.2) Urine Color Yellow Urine Appearance Other Urine pH 6.0 (4.5-8.0) Ur Specific [place] 1.015 (1.008-1.030) Urine Protein Negative (NEGATIVE) mg/dL Urine Glucose (UA) Normal (NEGATIVE) mg/dL Urine Ketones Negative (NEGATIVE) mg/dL Urine Occult Blood Negative (NEGATIVE) Urine Nitrite Negative (NEGAITVE) Urine Bilirubin Negative (NEGATIVE) Urine Urobilinogen Normal (NORMAL) mg/dL Ur Leukocyte Esterase Negative (NEGATIVE) Urine RBC Not seen (0-5) Urine WBC Not seen (0-5) Ur Epithelial Cells Not seen Amorphous Sediment Rare Urine Bacteria Not seen Urine Mucus Rare 02/09/19 02/09/19 02/10/19 Range/Units 11:56 18:03 05:35 WBC 8.9 (4.5-11.0) K/uL RBC 3.78 L (4.30-5.90) M/uL Hgb 12.3 D (12.0-15.0) g/dL Hct 38.2 L (40.0-54.0) % MCV 101 H (80-98) fL MCH 33 H (27-31) pg MCHC 32 (32-36) % Plt Count 146 L (150-400) K/uL Neut % (Auto) 64 (36-66) % Lymph % (Auto) 21 L (24-44) % [place] % (Auto) 13 H (2-6) % Eos % (Auto) 2 (2-4) % Baso % (Auto) 0 (0-1) % PT (9.5-12.0) sec INR (0.80-1.20) D-Dimer, Quantitative (0.0-400.0) ng/mL Sodium (140-148) mmol/L Potassium (3.6-5.2) mmol/L Chloride (100-108) mmol/L Carbon Dioxide (21-32) mmol/L Anion Gap (5.0-14.0) mmol/L BUN (7-18) mg/dL Creatinine (0.8-1.3) mg/dL Est Cr Clr Drug Dosing mL/min Estimated GFR (MDRD) (>60) Glucose (74-106) mg/dL Calcium (8.5-10.1) mg/dL Total Bilirubin (0.2-1.0) mg/dL AST (15-37) U/L ALT (12-78) U/L Alkaline Phosphatase (46-116) U/L Troponin I < 0.017 < 0.017 (0.000-0.056) ng/mL C-Reactive Protein (0.0-0.3) mg/dL Total Protein (6.4-8.2) g/dL Albumin (3.4-5.0) g/dL Globulin (2.3-3.5) g/dL Albumin/Globulin Ratio (1.2-2.2) Urine Color Urine Appearance Urine pH (4.5-8.0) Ur Specific [place] (1.008-1.030) Urine Protein (NEGATIVE) mg/dL Urine Glucose (UA) (NEGATIVE) mg/dL Urine Ketones (NEGATIVE) mg/dL Urine Occult Blood (NEGATIVE) Urine Nitrite (NEGAITVE) Urine Bilirubin (NEGATIVE) Urine Urobilinogen (NORMAL) mg/dL Ur Leukocyte Esterase (NEGATIVE) Urine RBC (0-5) Urine WBC (0-5) Ur Epithelial Cells Amorphous Sediment Urine Bacteria Urine Mucus 02/10/19 Range/Units 05:35 WBC (4.5-11.0) K/uL RBC (4.30-5.90) M/uL Hgb (12.0-15.0) g/dL Hct (40.0-54.0) % MCV (80-98) fL MCH (27-31) pg MCHC (32-36) % Plt Count (150-400) K/uL Neut % (Auto) (36-66) % Lymph % (Auto) (24-44) % [place] % (Auto) (2-6) % Eos % (Auto) (2-4) % Baso % (Auto) (0-1) % PT (9.5-12.0) sec INR (0.80-1.20) D-Dimer, Quantitative (0.0-400.0) ng/mL Sodium 142 (140-148) mmol/L Potassium 4.1 (3.6-5.2) mmol/L Chloride 109 H (100-108) mmol/L Carbon Dioxide 25 (21-32) mmol/L Anion Gap 12.1 (5.0-14.0) mmol/L BUN 28 H (7-18) mg/dL Creatinine 1.3 (0.8-1.3) mg/dL Est Cr Clr Drug Dosing 53.35 mL/min Estimated GFR (MDRD) 55 L (>60) Glucose 100 (74-106) mg/dL Calcium 8.5 (8.5-10.1) mg/dL Total Bilirubin (0.2-1.0) mg/dL AST (15-37) U/L ALT (12-78) U/L Alkaline Phosphatase (46-116) U/L Troponin I (0.000-0.056) ng/mL C-Reactive Protein (0.0-0.3) mg/dL Total Protein (6.4-8.2) g/dL Albumin (3.4-5.0) g/dL Globulin (2.3-3.5) g/dL Albumin/Globulin Ratio (1.2-2.2) Urine Color Urine Appearance Urine pH (4.5-8.0) Ur Specific [place] (1.008-1.030) Urine Protein (NEGATIVE) mg/dL Urine Glucose (UA) (NEGATIVE) mg/dL Urine Ketones (NEGATIVE) mg/dL Urine Occult Blood (NEGATIVE) Urine Nitrite (NEGAITVE) Urine Bilirubin (NEGATIVE) Urine Urobilinogen (NORMAL) mg/dL Ur Leukocyte Esterase (NEGATIVE) Urine RBC (0-5) Urine WBC (0-5) Ur Epithelial Cells Amorphous Sediment Urine Bacteria Urine Mucus Med Orders - Current: Current Medications Acetaminophen (Tylenol) 650 mg PO Q4H PRN PRN Reason: Pain (Mild 1-3)/fever Albuterol (Proventil Neb Soln) 2.5 mg NEB Q4H PRN PRN Reason: Shortness Of Breath/wheezing Colchicine (Colcrys) 0.6 mg PO BID [facility] Last Admin: 02/10/19 08:19 Dose: 0.6 mg Hydromorphone HCl (Dilaudid) 0.5 mg IVPUSH Q2H PRN PRN Reason: Pain Last Admin: 02/10/19 03:06 Dose: 0.5 mg Sodium Chloride (Normal Saline) 1,000 mls @ 125 mls/hr IV ASDIRECTED [facility] Last Admin: 02/10/19 05:44 Dose: 125 mls/hr Ibuprofen (Motrin) 600 mg PO Q8H [facility] Last Admin: 02/10/19 05:43 Dose: 600 mg Ondansetron HCl (Zofran) 4 mg IV Q4H PRN PRN Reason: Nausea/Vomiting Pantoprazole Sodium (Protonix) 40 mg PO DAILY@0730 [facility] Last Admin: 02/10/19 07:39 Dose: 40 mg Polyethylene Glycol (Miralax) 17 gm PO DAILY PRN PRN Reason: Constipation Sertraline HCl (Zoloft) 50 mg PO DAILY [facility] Last Admin: 02/10/19 08:19 Dose: 50 mg Sodium Chloride (Saline Flush) 10 ml FLUSH ASDIRECTED PRN PRN Reason: Keep Vein Open Last Admin: 02/09/19 20:42 Dose: 10 ml Discontinued Medications Colchicine (Colcrys) 1.2 mg PO BID [facility] Stop: 02/09/19 21:01 Last Admin: 02/09/19 20:41 Dose: 1.2 mg Al Hydroxide/Mg Hydroxide 15 (ml/ Lidocaine HCl 15 ml) 0 ml PO ONETIME ONE Stop: 02/09/19 10:11 Last Admin: 02/09/19 10:13 Dose: 30 ml Hydromorphone HCl (Dilaudid) 0.5 mg IVPUSH ONETIME ONE Stop: 02/09/19 11:09 Last Admin: 02/09/19 11:18 Dose: 0.5 mg Sodium Chloride (Normal Saline) 100 mls @ 0 mls/hr IV ASDIRECTED [facility] Stop: 02/09/19 10:31 Last Admin: 02/09/19 11:31 Dose: 4 mls/hr Sodium Chloride (Normal Saline) 1,000 mls @ 200 mls/hr IV ASDIRECTED [facility] Iopamidol (Isovue-370 (76%)) 100 ml IV . DIRECTED [facility] Stop: 02/09/19 10:31 Last Admin: 02/09/19 11:30 Dose: 100 ml Ketorolac Tromethamine (Toradol) 30 mg IVPUSH ONETIME ONE Stop: 02/09/19 11:10 Last Admin: 02/09/19 11:16 Dose: 30 mg Nitroglycerin (Nitrostat) 0.4 mg SL Q5M PRN PRN Reason: Chest Pain Last Admin: 02/09/19 10:11 Dose: 0.4 mg Sodium Chloride (Saline Flush) 10 ml FLUSH ONETIME ONE Stop: 02/09/19 10:30 Last Admin: 02/09/19 11:31 Dose: 10 ml - Exam Quality Assessment: Reports: DVT Prophylaxis General: Reports: Alert, Oriented, Cooperative, Mild Distress Lungs: Reports: Clear to Auscultation, Normal Respiratory Effort Cardiovascular: Reports: Regular Rate, Regular Rhythm, No Murmurs. Denies: Rubs GI/Abdominal Exam: Soft, Non-Tender, No Organomegaly, No Distention *Q Meaningful Use (DIS) - VTE *Q VTE Pharmacological Contraindications *Q: Risk of Bleeding
== END 2019-02-10 11:39 | disposition home or self-care (01) | DRG 315 ==
LOC: JP.ED 09:02 → JP.ICU 13:45
PROVIDERS: ADMIT Hospitalist; ATTEND Hospitalist
DX: I31.9 Disease of pericardium, unspecified (principal); C79.51 Secondary malignant neoplasm of bone; C61 Malignant neoplasm of prostate; F17.210 Nicotine dependence, cigarettes, uncomplicated; J44.9 Chronic obstructive pulmonary disease, unspecified; Z86.711 Personal history of pulmonary embolism; R06.02 Shortness of breath; R07.9 Chest pain, unspecified; H91.90 Unspecified hearing loss, unspecified ear; H54.7 Unspecified visual loss; E78.00 Pure hypercholesterolemia, unspecified; K21.9 Gastro-esophageal reflux disease without esophagitis; M19.90 Unspecified osteoarthritis, unspecified site; F41.9 Anxiety disorder, unspecified; F32.9 Major depressive disorder, single episode, unspecified; Z92.3 Personal history of irradiation
CPT/HCPCS: 36415; 71045; 71275; 80053; 81001; 84484 ×2; 85025; 85379; 85610; 86140; 93005; 93010; 96374; 96375; 99285; A9270 ×5; J1170; J1885; J7030; Q9967; 80048

== ENCOUNTER 2019-04-08 21:12 | Inpatient (IN) | payer MEDICARE, BC ==
[2019-04-08] MEDS ORDERED: Sodium Chloride 0.9% 1,000 ML IV SCH (21:45)
--- NOTE | 2019-04-08 22:13 | EDM.PDOC ---
ED HPI GENERAL MEDICAL PROBLEM - General Chief Complaint: Gastrointestinal Problem Stated Complaint: [facility] Time Seen by Provider: 04/08/19 21:30 Source of Information: Reports: Patient, EMS History Limitations: Reports: No Limitations - History of Present Illness INITIAL COMMENTS - FREE TEXT/NARRATIVE: 68-year-old male ate a hamburger earlier today at a restaurant that "didn't taste right", which increased his diarrhea. He has chronic loose stools as he is getting treatment for metastatic prostate cancer. No fevers or chills. Tonight he felt so weak he passed out. No injury. He is also concerned that his right lower extremity has been swollen and painful and is concerned of a DVT. This is been going on for the past 2 days. Duration: Day(s): (Diarrhea is chronic but worse the last 12 hours) Associated Symptoms: Reports: Chest Pain (Upper chest pain and back pain, chronic and worsening), Shortness of Breath. Denies: Confusion Treatments EXTRA GANG SUPERVISOR: Reports: IV/IO, Other (see below) Other Treatments EXTRA GANG SUPERVISOR: 1000ml normal saline Generalized Pain Score (Numeric/FACES): 2 - Related Data Allergies Allergy/AdvReac Type Severity Reaction Status Date / Time No Known Allergies Allergy Verified 02/09/19 09:18 Home Meds: Home Meds Omeprazole [Prilosec] 20 mg PO DAILY 08/23/15 [History] Sertraline [Zoloft] 50 mg PO DAILY 08/23/15 [History] Vit A/Vit C/Vit E/Zinc/Copper [Preservision Areds Softgel] 1 each PO BID [History] Colchicine 0.6 mg PO BID #60 tablet 02/10/19 [Rx] Ibuprofen [Motrin] 600 mg PO Q8H #21 tablet 02/10/19 [Rx] Past Medical History HEENT History: Reports: Hard of Hearing, Impaired Vision Cardiovascular History: Reports: High Cholesterol, Other (See Below) Other Cardiovascular History: Pericarditis many years ago Respiratory History: Reports: COPD, PE Gastrointestinal History: Reports: Chronic Diarrhea, GERD, Hemorrhoids Genitourinary History: Reports: Prostate Disorder, Retention, Urinary, Other ( See Below) Other Genitourinary History: Prostate cancer Musculoskeletal History: Reports: Osteoarthritis Psychiatric History: Reports: Anxiety, Depression Hematologic History: Reports: Other (See Below) Other Hematologic History: lymes Oncologic (Cancer) History: Reports: Prostate Other Oncologic History: Prostate cancer dx in 2004, 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 Currently getting radiation to that area. Sees Alejandro Higginbotham, urologist at [place]. - Infectious Disease History Infectious Disease History: Reports: Chicken Pox - Past Surgical History Head Surgeries/Procedures: Reports: None HEENT Surgical History: Reports: Oral Surgery, Tonsillectomy Social & Family History - Family History Family Medical History: Noncontributory - Caffeine Use Caffeine Use: Reports: Coffee ED ROS GENERAL - Review of Systems Review Of Systems: See Below Constitutional: Reports: Malaise. Denies: Fever, Chills HEENT: Reports: No Symptoms Respiratory: Reports: Shortness of Breath Cardiovascular: Reports: Chest Pain (Upper chest and upper back) GI/Abdominal: Reports: Diarrhea. Denies: Black Stool, Bloody Stool : Reports: No Symptoms Musculoskeletal: Reports: Neck Pain, Back Pain Skin: Reports: Diaphoresis Neurological: Reports: Syncope Psychiatric: Reports: No Symptoms ED EXAM, GENERAL - Physical Exam Exam: See Below Exam Limited By: No Limitations General Appearance: Alert, No Apparent Distress, Other (Patient received 2 500 mL boluses of fluid in route, his blood pressure is still only in the 80s systolic) Eye Exam: Bilateral Eye: Normal Inspection Head: Atraumatic Respiratory/Chest: No Respiratory Distress, Lungs Clear Cardiovascular: Regular Rate, Rhythm GI/Abdominal: Soft, Non-Tender Extremities: Other (1+ pitting edema on the right leg with discomfort with palpation in the calf popliteal area and thigh) Neurological: Alert, Oriented Psychiatric: Normal Affect, Normal Mood Skin Exam: Warm, Dry, Other (Some venous stasis changes of the right lower extremity) Course - Vital Signs Last Recorded V/S: Last Vital Signs Temp 97.0 F 04/09/19 00:58 Pulse 76 04/09/19 00:58 Resp 18 04/09/19 00:58 BP 96/77 04/09/19 00:58 Pulse Ox 96 04/09/19 01:25 - Orders/Labs/Meds Orders: Active Orders 24 hr Category Date Time Status CLOSTRIDIUM DIFFICILE BY PCR [RM] Stat Lab 04/08/19 22:03 Ordered WBC, STOOL [OP] Stat Lab 04/08/19 22:03 Ordered Isolation [COMM] Stat Oth 04/08/19 22:03 Ordered Medication Orders Acetaminophen (Tylenol) 650 mg PO Q4H PRN PRN Reason: Pain (Mild 1-3)/fever Albuterol (Proventil Neb Soln) 2.5 mg NEB Q4H PRN PRN Reason: Shortness Of Breath/wheezing Albuterol/Ipratropium (Duoneb 3.0-0.5 Mg/3 Ml) 3 ml NEB QIDRT [facility] Last Admin: 04/09/19 01:34 Dose: 3 ml Cyclobenzaprine HCl (Flexeril) 10 mg PO Q8H PRN PRN Reason: Muscle Spasm Diphtheria/Tetanus/Acell Pertussis (Adacel) 0.5 ml IM .ONCE ONE Stop: 04/10/19 09:01 Enoxaparin Sodium (Lovenox) 100 mg SUBCUT Q12H [facility] Sodium Chloride (Normal Saline) 1,000 mls @ 125 mls/hr IV ASDIRECTED [facility] Last Admin: 04/09/19 01:39 Dose: 125 mls/hr Lorazepam (Ativan) 1 mg IV Q6H PRN PRN Reason: Nausea/Vomiting Morphine Sulfate (Morphine) 2 mg IVPUSH Q2H PRN PRN Reason: Pain (severe 7-10) Ondansetron HCl (Zofran Odt) 4 mg PO Q6H PRN PRN Reason: Nausea able to take PO Oxycodone HCl (Oxycodone) 5 mg PO Q4H PRN PRN Reason: Pain (moderate 4-6) Pantoprazole Sodium (Protonix) 40 mg PO ACBREAKFAST [facility] Sertraline HCl (Zoloft) 50 mg PO DAILY [facility] Labs: Laboratory Tests 04/08/19 04/08/19 Range/Units 22:03 22:29 WBC 14.5 H (4.5-11.0) K/uL RBC 3.67 L (4.30-5.90) M/uL Hgb 12.1 (12.0-15.0) g/dL Hct 37.0 L (40.0-54.0) % MCV 101 H (80-98) fL MCH 33 H (27-31) pg MCHC 33 (32-36) % Plt Count 103 L (150-400) K/uL Neut % (Auto) 83 H (36-66) % Lymph % (Auto) 8 L (24-44) % [place] % (Auto) 8 H (2-6) % Eos % (Auto) 1 L (2-4) % Baso % (Auto) 0 (0-1) % Sodium 141 (140-148) mmol/L Potassium 3.3 L (3.6-5.2) mmol/L Chloride 106 (100-108) mmol/L Carbon Dioxide 25 (21-32) mmol/L Anion Gap 13.3 (5.0-14.0) mmol/L BUN 34 H (7-18) mg/dL Creatinine 1.8 H (0.8-1.3) mg/dL Est Cr Clr Drug Dosing 39.82 mL/min Estimated GFR (MDRD) 38 L (>60) Glucose 143 H (74-106) mg/dL Calcium 8.5 (8.5-10.1) mg/dL Total Bilirubin 0.5 (0.2-1.0) mg/dL AST 13 L (15-37) U/L ALT 19 (12-78) U/L Alkaline Phosphatase 86 (46-116) U/L Total Protein 6.6 (6.4-8.2) g/dL Albumin 3.1 L (3.4-5.0) g/dL Globulin 3.5 (2.3-3.5) g/dL Albumin/Globulin Ratio 0.9 L (1.2-2.2) Meds: Medications Generic Name Dose Route Start Last Admin Trade Name Freq PRN Reason Stop Dose Admin Acetaminophen 650 mg 04/09/19 00:58 Tylenol PO Q4H PRN Pain (Mild 1-3)/fever Albuterol 2.5 mg 04/09/19 00:58 Proventil Neb Soln NEB Q4H PRN Shortness Of Breath/wheezing Albuterol/Ipratropium 3 ml 04/09/19 00:58 04/09/19 01:34 Duoneb 3.0-0.5 Mg/3 Ml NEB 3 ml QIDRT [facility] Administration Cyclobenzaprine HCl 10 mg 04/09/19 00:58 Flexeril PO Q8H PRN Muscle Spasm Diphtheria/Tetanus/Acell Pertussis 0.5 ml 04/10/19 09:00 Adacel IM 04/10/19 09:01 .ONCE ONE Enoxaparin Sodium 100 mg 04/09/19 09:10 Lovenox SUBCUT Q12H [facility] Sodium Chloride 1,000 mls @ 125 mls/hr 04/09/19 00:58 04/09/19 01:39 Normal Saline IV 125 mls/hr ASDIRECTED [facility] Administration Lorazepam 1 mg 04/09/19 00:58 Ativan IV Q6H PRN Nausea/Vomiting Morphine Sulfate 2 mg 04/09/19 00:58 Morphine IVPUSH Q2H PRN Pain (severe 7-10) Ondansetron HCl 4 mg 04/09/19 00:58 Zofran Odt PO Q6H PRN Nausea able to take PO Oxycodone HCl 5 mg 04/09/19 00:58 Oxycodone PO Q4H PRN Pain (moderate 4-6) Pantoprazole Sodium 40 mg 04/09/19 07:30 Protonix PO ACBREAKFAST [facility] Sertraline HCl 50 mg 04/09/19 09:00 Zoloft PO DAILY [facility] Discontinued Medications Generic Name Dose Route Start Last Admin Trade Name Freq PRN Reason Stop Dose Admin Enoxaparin Sodium 100 mg 04/08/19 23:09 04/09/19 00:14 Lovenox SUBCUT 04/08/19 23:10 100 mg ONETIME ONE Administration Sodium Chloride 1,000 mls @ 1,000 mls/hr 04/08/19 21:45 04/08/19 22:00 Normal Saline IV 1,000 mls/hr ASDIRECTED [facility] Administration Potassium Chloride 20 meq/ 100 mls @ 50 mls/hr 04/09/19 00:52 04/09/19 01:37 Premix IV 04/09/19 02:51 50 mls/hr ONETIME ONE Administration Lidocaine HCl 2 ml 04/09/19 01:23 04/09/19 02:21 Xylocaine-Mpf 1% INJECT 04/09/19 01:24 2 ml ONETIME ONE Administration - Re-Assessments/Exams Free Text/Narrative Re-Assessment/Exam: 04/08/19 23:07 An additional liter of fluid was given IV, CMP and CBC obtained and an ultrasound of the right leg. This did prove to be positive for significant DVT. 04/08/19 23:14 Hemoglobin is normal, white count is elevated at 14,500. Creatinine 1.8 and GFR 36. DVT study was positive for extensive DVT in the right femoral system to the calf. Patient was given 100 mg of subcutaneous Lovenox, hydration overnight and hopefully his kidney function and hydration status will improve to perform an IV enhanced PE study tomorrow. Also a diarrheal stool could be obtained in the meantime which has not been provided to this point. Departure - Departure Time of Disposition: 01:02 Disposition: Admitted As Inpatient 67 Clinical Impression: Dehydration, moderate, Diarrhea Syncope Qualifiers: Syncope type: unspecified Qualified Code(s): R55 - Syncope and collapse DVT of lower limb, acute Qualifiers: Affected thrombotic vein of extremity: femoral Laterality: right Qualified Code (s): I82.411 - Acute embolism and thrombosis of right femoral vein - Discharge Information - My Orders Last 24 Hours: My Active Orders 04/08/19 22:03 CLOSTRIDIUM DIFFICILE BY PCR [RM] Stat WBC, STOOL [OP] Stat Isolation [COMM] Stat - Assessment/Plan Last 24 Hours: My Active Orders 04/08/19 22:03 CLOSTRIDIUM DIFFICILE BY PCR [RM] Stat WBC, STOOL [OP] Stat Isolation [COMM] Stat
[2019-04-08] MEDS ORDERED: Enoxaparin 100 MG/1 ML Syringe SUBCUT ONE (23:09)
--- NOTE | 2019-04-08 23:20 | CRLUS ---
INDICATION: Right leg pain and swelling. History of PE. COMPARISON: None available. FINDINGS: Ultrasound of the venous drainage of the right lower extremity is performed with a high-resolution linear transducer. There is extensive occlusive deep venous thrombosis extending from the common femoral vein through the posterior tibial and peroneal veins. The left common femoral vein is widely patent. The findings were discussed with Dr. Washburn at 21 15 hours on 04/08/2019. IMPRESSION: Extensive occlusive deep venous thrombosis extending from the common femoral vein through the peroneal veins. Dictated by Duglas Mcduffie MD @ Apr 08 2019 11:13PM Signed by Dr. Duglas Mcduffie @ Apr 08 2019 11:19PM
--- NOTE | 2019-04-09 00:22 | PCM.HP.2 ---
H&P History of Present Illness - General Date of Service: 04/08/19 Admit Problem/Dx: Admission Diagnosis/Problem Admission Diagnosis/Problem DVT, Deep venous thrombosis of lower extremity Source of Information: Patient, EMS, Provider, RN History Limitations: Reports: No Limitations - History of Present Illness Initial Comments - Free Text/Narative: chief complaint: fainted at home and right leg swelling since Friday 68-year-old male ate a hamburger earlier today at a restaurant that "didn't taste right", which increased his diarrhea. He has chronic loose stools as he is getting treatment for metastatic prostate cancer. No fevers or chills. Tonight he felt so weak he passed out. No injury. He is also concerned that his right lower extremity has been swollen and painful and is concerned of a DVT. This is been going on for the past 2 days. Duration: Day(s): (Diarrhea is chronic but worse the last 12 hours) Associated Symptoms: Reports: Chest Pain (Upper chest pain and back pain, chronic and worsening), Shortness of Breath. Denies: Confusion Treatments PETROGRAPHY TEACHER: Reports: IV/IO, Other (see below) Other Treatments PETROGRAPHY TEACHER: 1000ml normal saline 04/08/19 23:07 An additional liter of fluid was given IV, CMP and CBC obtained and an ultrasound of the right leg. This did prove to be positive for significant DVT. 04/08/19 23:14 Hemoglobin is normal, white count is elevated at 14,300. Creatinine 1.8 and GFR 36. DVT study was positive for extensive DVT in the right femoral system to the calf. Patient was given 100 mg of subcutaneous Lovenox, hydration overnight and hopefully his kidney function and hydration status will improve to perform an IV enhanced PE study tomorrow. Also a diarrheal stool could be obtained in the meantime which has not been provided to this point. Onset of Symptoms: Reports: Gradual Symptom Onset Date: 04/04/19 Duration of Symptoms: Reports: Getting Worse Location: Reports: Lower Extremity, Right (swelling and ache started on Friday) , Generalized (weakness a few days) Quality: Reports: Ache (right lower leg) Severity: Moderate Worsens with: Reports: Movement Associated Symptoms: Reports: Syncope ("passed out" at home, Ambulance called to home), Weakness - Related Data Allergies/Adverse Reactions: Allergies Allergy/AdvReac Type Severity Reaction Status Date / Time No Known Allergies Allergy Verified 02/09/19 09:18 Home Medications: Home Meds Omeprazole [Prilosec] 20 mg PO DAILY 08/23/15 [History] Sertraline [Zoloft] 50 mg PO DAILY 08/23/15 [History] Vit A/Vit C/Vit E/Zinc/Copper [Preservision Areds Softgel] 1 each PO BID [History] Colchicine 0.6 mg PO BID #60 tablet 02/10/19 [Rx] Ibuprofen [Motrin] 600 mg PO Q8H #21 tablet 02/10/19 [Rx] Past Medical History HEENT History: Reports: Hard of Hearing, Impaired Vision Cardiovascular History: Reports: High Cholesterol, Other (See Below) Other Cardiovascular History: Pericarditis many years ago Respiratory History: Reports: COPD, PE Gastrointestinal History: Reports: Chronic Diarrhea, GERD, Hemorrhoids Genitourinary History: Reports: Prostate Disorder, Retention, Urinary, Other ( See Below) Other Genitourinary History: Prostate cancer Musculoskeletal History: Reports: Osteoarthritis Psychiatric History: Reports: Anxiety, Depression Hematologic History: Reports: Other (See Below) Other Hematologic History: lymes Oncologic (Cancer) History: Reports: Prostate Other Oncologic History: Prostate cancer dx in 2004, 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 Currently getting radiation to that area. Sees Alejandro Higginbotham, urologist at [facility]. - Infectious Disease History Infectious Disease History: Reports: Chicken Pox - Past Surgical History Head Surgeries/Procedures: Reports: None HEENT Surgical History: Reports: Oral Surgery, Tonsillectomy Social & Family History - Family History Family Medical History: Noncontributory - Tobacco Use Smoking Status *Q: Current Every Day Smoker Years of Tobacco use: 50 Packs/Tins Daily: 0.2 Second Hand Smoke Exposure: Yes - Caffeine Use Caffeine Use: Reports: Coffee - Recreational Drug Use Recreational Drug Use: Yes Recreational Drug Type: Reports: Marijuana/Hashish Recreational Drug Use Frequency: Binges - Living Situation & Occupation Living situation: Reports: ( to Kori, 2 grown children, 4 children. They are help care for jean-claudeer Son's 36 year old who has early onset dementia and thier Grandchildren while the Son works.) Occupation: Retired H&P Review of Systems - Review of Systems: Review Of Systems: See Below General: Reports: Weakness, Fatigue HEENT: Reports: No Symptoms Pulmonary: Reports: No Symptoms Cardiovascular: Reports: No Symptoms Gastrointestinal: Reports: No Symptoms Genitourinary: Reports: No Symptoms Musculoskeletal: Reports: Neck Pain, Back Pain, Joint Pain (hips), Other ( prostate cancer mets to hips, back and neck. had radiation treatment to resolve this. but take motrin and flexeril for pain.) Skin: Reports: No Symptoms Psychiatric: Reports: No Symptoms Neurological: Reports: Syncope, Weakness Hematologic/Lymphatic: Reports: No Symptoms Immunologic: Reports: No Symptoms Exam - Exam Exam: See Below - Vital Signs Vital Signs: Last Vital Signs Temp 35.6 C 04/08/19 21:25 Pulse 67 04/08/19 22:45 Resp 13 04/08/19 22:13 BP 126/66 04/08/19 22:45 Pulse Ox 95 04/08/19 22:45 Weight: 80.739 kg - Exam Quality Assessment: DVT Prophylaxis General: Alert, Oriented, Cooperative HEENT: PERRLA, Conjunctiva Clear, EOMI, Hearing Intact Neck: Supple, Trachea Midline Lungs: Clear to Auscultation, Normal Respiratory Effort Cardiovascular: Regular Rate, Regular Rhythm, Normal S1, Normal S2 GI/Abdominal Exam: Normal Bowel Sounds, Soft, Non-Tender, No Organomegaly, No Distention, Pelvis Stable (Male) Exam: Deferred Rectal (Males) Exam: Deferred Extremities: Normal Capillary Refill, Leg Pain (rt), Increased Warmth (right leg with mild edema and increase warmth when compared to left leg), Redness (rt) Peripheral Pulses: 2+: Dorsalis Pedis (L), Dorsalis Pedis (R) Skin: Warm, Dry, Intact Neurological: Strength Equal Bilateral, Normal Speech, Normal Tone Neuro Extensive - Mental Status: Alert, Oriented x3, Normal Mood/Affect, Normal Cognition Psychiatric: Alert, Normal Affect, Normal Mood - Patient Data Lab Results Last 24 hrs: Laboratory Results - last 24 hr 04/08/19 04/08/19 Range/Units 22:03 22:29 WBC 14.5 H (4.5-11.0) K/uL RBC 3.67 L (4.30-5.90) M/uL Hgb 12.1 (12.0-15.0) g/dL Hct 37.0 L (40.0-54.0) % MCV 101 H (80-98) fL MCH 33 H (27-31) pg MCHC 33 (32-36) % Plt Count 103 L (150-400) K/uL Neut % (Auto) 83 H (36-66) % Lymph % (Auto) 8 L (24-44) % [place] % (Auto) 8 H (2-6) % Eos % (Auto) 1 L (2-4) % Baso % (Auto) 0 (0-1) % Sodium 141 (140-148) mmol/L Potassium 3.3 L (3.6-5.2) mmol/L Chloride 106 (100-108) mmol/L Carbon Dioxide 25 (21-32) mmol/L Anion Gap 13.3 (5.0-14.0) mmol/L BUN 34 H (7-18) mg/dL Creatinine 1.8 H (0.8-1.3) mg/dL Est Cr Clr Drug Dosing 39.82 mL/min Estimated GFR (MDRD) 38 L (>60) Glucose 143 H (74-106) mg/dL Calcium 8.5 (8.5-10.1) mg/dL Total Bilirubin 0.5 (0.2-1.0) mg/dL AST 13 L (15-37) U/L ALT 19 (12-78) U/L Alkaline Phosphatase 86 (46-116) U/L Total Protein 6.6 (6.4-8.2) g/dL Albumin 3.1 L (3.4-5.0) g/dL Globulin 3.5 (2.3-3.5) g/dL Albumin/Globulin Ratio 0.9 L (1.2-2.2) Result Diagrams: 04/08/19 22:03 04/08/19 22:29 - Problem List (1) DVT of lower limb, acute SNOMED Code(s): 779541419346 ICD Code: I82.409 - ACUTE EMBOLISM AND THOMBOS UNSP DEEP VN UNSP LOWER EXTREMITY Status: Acute Priority: High Current Visit: Yes Qualifiers: Affected thrombotic vein of extremity: femoral Laterality: right Qualified Code(s): I82.411 - Acute embolism and thrombosis of right femoral vein (2) Hypokalemia SNOMED Code(s): 33155804 ICD Code: E87.6 - HYPOKALEMIA Status: Acute Priority: Low Current Visit : Yes (3) Chronic diarrhea SNOMED Code(s): 035248617 ICD Code: K52.9 - NONINFECTIVE GASTROENTERITIS AND COLITIS, UNSPECIFIED Status: Chronic Priority: Medium Current Visit: Yes (4) COPD (chronic obstructive pulmonary disease) SNOMED Code(s): 14985764 ICD Code: J44.9 - CHRONIC OBSTRUCTIVE PULMONARY DISEASE, UNSPECIFIED Status : Chronic Priority: Low Current Visit: No Qualifiers: COPD type: emphysema (5) Prostate cancer metastatic to bone SNOMED Code(s): 781496230 ICD Code: C61 - MALIGNANT NEOPLASM OF PROSTATE; C79.51 - SECONDARY MALIGNANT NEOPLASM OF BONE Status: Chronic Priority: Low Current Visit: Yes (6) Tobacco dependence SNOMED Code(s): 50225896 ICD Code: F17.200 - NICOTINE DEPENDENCE, UNSPECIFIED, UNCOMPLICATED Status : Acute Priority: Low Current Visit: Yes Problem List Initiated/Reviewed/Updated: Yes Orders Last 24hrs: Active Orders 24 hr Category Date Time Status Patient Status Manage Transfer [TRANSFER] Routine ADT 04/08/19 23:44 Active BASIC METABOLIC PANEL,BMP [CHEM] AM Lab 04/09/19 05:11 Ordered CLOSTRIDIUM DIFFICILE BY PCR [RM] Stat Lab 04/08/19 22:03 Ordered WBC, STOOL [OP] Stat Lab 04/08/19 22:03 Ordered Sodium Chloride 0.9% [Normal Saline] 1,000 ml Med 04/08/19 21:45 Active IV ASDIRECTED Isolation [COMM] Stat Oth 04/08/19 22:03 Ordered Resuscitation Status Routine Resus Stat 04/08/19 23:46 Ordered Medication Orders Sodium Chloride (Normal Saline) 1,000 mls @ 1,000 mls/hr IV ASDIRECTED ARTHUR Last Admin: 04/08/19 22:00 Dose: 1,000 mls/hr Assessment/Plan Comment:: ASSESSMENT / PLAN chief complaint: fainted at home and right leg swelling since Friday 68-year-old male ate a hamburger earlier today at a restaurant that "didn't taste right", which increased his diarrhea. He has chronic loose stools as he is getting treatment for metastatic prostate cancer. No fevers or chills. Tonight he felt so weak he passed out. No injury. He is also concerned that his right lower extremity has been swollen and painful and is concerned of a DVT. This is been going on for the past 2 days. Duration: Day(s): (Diarrhea is chronic but worse the last 12 hours) Associated Symptoms: Reports: Chest Pain (Upper chest pain and back pain, chronic and worsening), Shortness of Breath. Denies: Confusion Treatments PETROGRAPHY TEACHER: Reports: IV/IO, Other (see below) Other Treatments PETROGRAPHY TEACHER: 1000ml normal saline An additional liter of fluid was given IV, CMP and CBC obtained and an ultrasound of the right leg. This did prove to be positive for significant DVT. Hemoglobin is normal, white count is elevated at 14,300. Creatinine 1.8 and GFR 36. DVT study was positive for extensive DVT in the right femoral system to the calf. Patient was given 100 mg of subcutaneous Lovenox, hydration overnight and hopefully his kidney function and hydration status will improve to perform an IV enhanced PE study tomorrow. Also a diarrheal stool could be obtained in the meantime which has not been provided to this point. RIGHT LEG DVT -Admit to [address] [place] [address] for further monitoring -pressure reduction mattress -bedrest with bedside commode -Lovenox 100mg subcut bid -Telemetry -continue pulse ox -IV fluids for rehydration NS at 125 mL per hour -Advise to notify nurses of any chest pain, shortness of breath or other symptoms -And a.m. labs: CBC, BMP, INR, PT HYPOKALEMIA - Potassium 3.3 -give IV Potassium 20 meq -BMP in am COPD -order nebs prn TOBACCO DEPENDENCE -declines patch or gum PROSTATE CANCER WITH METS TO BONE -Flexeril 10 mg po tid prn muscle spasms DIARRHEA -stool for c-diff -isolation precautions Maintenance issues -Orders home meds: -Nutrition: Regular diet -Caruso catheter not indicated at this time -DVT: Lovenox 100 mg subcut bid -GI Prophalaxis; Prilosec 20 mg po bid CODE STATUS: Full Admission status: Admit to Observation -I expect this patient to stay less than 24 hours, not to exceed 96 hours for evaluation and management of this problem. Disposition - home with family, call Randy Baez [phone] with any concerns Primary care provider: Dr. Keen Speciality: Dr. Scott, Oncology [facility], next appt 06-08-2019 Hospitalist: Dr. Asa Patel - Mortality Measure Prognosis:: Good
[2019-04-09] MEDS ORDERED: Potassium Chloride 20 MEQ in Premix Bag 1 BAG IV ONE (00:52)
[2019-04-09] MEDS ORDERED: Albuterol 0.083% 2.5 MG/3 ML Neb Soln NEB PRN (00:58)
[2019-04-09] MEDS ORDERED: Ondansetron 4 MG Tab.DIS PO PRN (00:58)
[2019-04-09] MEDS ORDERED: Morphine 2 MG/ML Syringe IVPUSH PRN (00:58)
[2019-04-09] MEDS ORDERED: Cyclobenzaprine 10 MG Tab PO PRN (00:58)
[2019-04-09] MEDS ORDERED: LORazepam 2 MG/ML SDV IV PRN ×2 (00:58→10:29)
[2019-04-09] MEDS: Albuterol/Ipratropium 3.0-0.5 MG/3 ML Neb Soln NEB SCH ×5 (01:34→20:28)
[2019-04-09] MEDS: Sodium Chloride 0.9% 1,000 ML IV SCH ×2 (01:39→09:45)
[2019-04-09] MEDS ORDERED: Sodium Chloride 0.9% 100 ML IV SCH (08:45)
[2019-04-09] MEDS ORDERED: Iopamidol 755 Mg/ML 100 ML Bottle IV SCH (08:45)
[2019-04-09] MEDS ORDERED: Enoxaparin 100 MG/1 ML Syringe SUBCUT SCH (09:00)
--- NOTE | 2019-04-09 09:17 | CRLCT ---
INDICATION: Syncope. History of DVT. COMPARISON: [address] TECHNIQUE: 100 mL Isovue-370 IV contrast. FINDINGS: Low attenuation near occlusive small volume of filling defect anterior, posterior and superior segment 1st order branch proximal right pulmonary arteries. Occlusive filling defect for short distance 2nd order branch of right lower lobe to the anterior segment. Some nonocclusive small filling defects into the posterior and lateral segments. Small amount of nonocclusive thrombus at the bifurcation of the anterior and lingular left upper lobe. Low-attenuation nonocclusive filling defects at the bifurcation left lower lobe and extending into the peripheral 3rd order posterior segment branch. No right heart strain findings. Aortic caliber is normal with no dissection and moderate atherosclerosis. Prominent emphysema. Hazy and reticular attenuation in the periphery of the inferior lateral right upper lobe. This is new and may be developing infarct. No pathologic adenopathy. No significant finding in the upper abdomen. No significant bone finding. IMPRESSION: 1. New from comparison small volume of pulmonary embolism both lungs. 2. Mild infarct early changes versus mild pneumonitis inferior lateral right upper lobe. 3. Emphysema. 4. Results discussed with and acknowledged by the ordering clinician Dr. Patel at 9:15 a.m. 09 April 2019. Please note that all CT scans at this facility use dose modulation, iterative reconstruction, and/or weight-based dosing when appropriate to reduce radiation dose to as low as reasonably achievable. Dictated by Lee Mccracken MD @ Apr 09 2019 9:16AM Signed by Dr. Lee Mccracken @ Apr 09 2019 9:16AM
--- NOTE | 2019-04-09 10:37 | PCM.PN ---
- General Info Date of Service: 04/09/19 Subjective Update: Mr. Baez is a 68-year-old gentleman who was admitted through the emergency department with back pain, neck pain, and syncope, secondary to deep vein thrombosis and bilateral pulmonary emboli. He does have a known history of metastatic prostate carcinoma and is currently actively treated for that. He has had one previous episode of deep vein thrombosis and pulmonary emboli, treated with oral anticoagulation. He admits that he has been doing a lot of sitting within the past few weeks which may have contributed to the development of deep vein thrombosis. Venous Doppler study was obtained in the emergency department and showed evidence of fairly extensive deep vein thrombosis in the right lower extremity. CT scan of the chest with PE protocol obtained this morning shows evidence of bilateral pulmonary emboli. We did discuss anticoagulation and he prefers therapy with warfarin again. Functional Status: Reports: Tolerating Diet, Ambulating, Urinating - Review of Systems General: Denies: Fever, Chills Pulmonary: Reports: No Symptoms Cardiovascular: Reports: Edema. Denies: Chest Pain, Palpitations, Dyspnea on Exertion, Orthopnea, PND, Lightheadedness Gastrointestinal: Reports: No Symptoms Musculoskeletal: Reports: Neck Pain, Back Pain - Patient Data Vitals - Most Recent: Last Vital Signs Temp 96.7 F 04/09/19 06:52 Pulse 57 L 04/09/19 07:21 Resp 18 04/09/19 06:52 BP 115/70 04/09/19 06:52 Pulse Ox 96 04/09/19 08:00 Weight - Most Recent: 172 lb 6.388 oz I&O - Last 24 Hours: Intake & Output 04/08/19 04/09/19 04/09/19 22:59 06:59 14:59 Intake Total 639 600 Output Total 250 Balance 389 600 Lab Results Last 24 Hours: Laboratory Results - last 24 hr 04/08/19 04/08/19 04/09/19 Range/Units 22:03 22:29 04:53 WBC 14.5 H (4.5-11.0) K/uL RBC 3.67 L (4.30-5.90) M/uL Hgb 12.1 (12.0-15.0) g/dL Hct 37.0 L (40.0-54.0) % MCV 101 H (80-98) fL MCH 33 H (27-31) pg MCHC 33 (32-36) % Plt Count 103 L (150-400) K/uL Neut % (Auto) 83 H (36-66) % Lymph % (Auto) 8 L (24-44) % [place] % (Auto) 8 H (2-6) % Eos % (Auto) 1 L (2-4) % Baso % (Auto) 0 (0-1) % PT (9.5-12.0) sec INR (0.80-1.20) Sodium 141 141 (140-148) mmol/L Potassium 3.3 L 4.1 (3.6-5.2) mmol/L Chloride 106 108 (100-108) mmol/L Carbon Dioxide 25 22 (21-32) mmol/L Anion Gap 13.3 11.0 (5.0-14.0) mmol/L BUN 34 H 35 H (7-18) mg/dL Creatinine 1.8 H 1.5 H (0.8-1.3) mg/dL Est Cr Clr Drug Dosing 39.82 47.79 mL/min Estimated GFR (MDRD) 38 L 47 L (>60) Glucose 143 H 136 H (74-106) mg/dL Calcium 8.5 8.5 (8.5-10.1) mg/dL Total Bilirubin 0.5 (0.2-1.0) mg/dL AST 13 L (15-37) U/L ALT 19 (12-78) U/L Alkaline Phosphatase 86 (46-116) U/L Total Protein 6.6 (6.4-8.2) g/dL Albumin 3.1 L (3.4-5.0) g/dL Globulin 3.5 (2.3-3.5) g/dL Albumin/Globulin Ratio 0.9 L (1.2-2.2) 04/09/19 04/09/19 Range/Units 04:53 04:53 WBC 12.0 H (4.5-11.0) K/uL RBC 3.47 L (4.30-5.90) M/uL Hgb 11.0 L (12.0-15.0) g/dL Hct 34.6 L (40.0-54.0) % MCV 100 H (80-98) fL MCH 32 H (27-31) pg MCHC 32 (32-36) % Plt Count 112 L (150-400) K/uL Neut % (Auto) 75 H (36-66) % Lymph % (Auto) 17 L (24-44) % [place] % (Auto) 7 H (2-6) % Eos % (Auto) 1 L (2-4) % Baso % (Auto) 0 (0-1) % PT 10.7 (9.5-12.0) sec INR 0.99 (0.80-1.20) Sodium (140-148) mmol/L Potassium (3.6-5.2) mmol/L Chloride (100-108) mmol/L Carbon Dioxide (21-32) mmol/L Anion Gap (5.0-14.0) mmol/L BUN (7-18) mg/dL Creatinine (0.8-1.3) mg/dL Est Cr Clr Drug Dosing mL/min Estimated GFR (MDRD) (>60) Glucose (74-106) mg/dL Calcium (8.5-10.1) mg/dL Total Bilirubin (0.2-1.0) mg/dL AST (15-37) U/L ALT (12-78) U/L Alkaline Phosphatase (46-116) U/L Total Protein (6.4-8.2) g/dL Albumin (3.4-5.0) g/dL Globulin (2.3-3.5) g/dL Albumin/Globulin Ratio (1.2-2.2) Med Orders - Current: Current Medications Acetaminophen (Tylenol) 650 mg PO Q4H PRN PRN Reason: Pain (Mild 1-3)/fever Albuterol (Proventil Neb Soln) 2.5 mg NEB Q4H PRN PRN Reason: Shortness Of Breath/wheezing Albuterol/Ipratropium (Duoneb 3.0-0.5 Mg/3 Ml) 3 ml NEB QIDRT [facility] Last Admin: 04/09/19 07:19 Dose: 3 ml Colchicine (Colcrys) 0.6 mg PO BID [facility] Cyclobenzaprine HCl (Flexeril) 10 mg PO Q8H PRN PRN Reason: Muscle Spasm Diphtheria/Tetanus/Acell Pertussis (Adacel) 0.5 ml IM .ONCE ONE Stop: 04/10/19 09:01 Enoxaparin Sodium (Lovenox) 80 mg SUBCUT Q12H [facility] Iopamidol (Isovue-370 (76%)) 100 ml IV . DIRECTED [facility] Stop: 04/09/19 16:00 Last Admin: 04/09/19 08:56 Dose: 100 ml Lorazepam (Ativan) 0.5 mg IV Q4H PRN PRN Reason: Nausea/Vomiting Ondansetron HCl (Zofran Odt) 4 mg PO Q6H PRN PRN Reason: Nausea able to take PO Oxycodone HCl (Oxycodone) 5 mg PO Q4H PRN PRN Reason: Pain (moderate 4-6) Pantoprazole Sodium (Protonix) 40 mg PO ACBREAKFAST [facility] Sertraline HCl (Zoloft) 50 mg PO DAILY [facility] Warfarin Sodium (Coumadin) 7.5 mg PO ONETIME ONE Stop: 04/09/19 11:31 Discontinued Medications Enoxaparin Sodium (Lovenox) 100 mg SUBCUT ONETIME ONE Stop: 04/08/19 23:10 Last Admin: 04/09/19 00:14 Dose: 100 mg Enoxaparin Sodium (Lovenox) 100 mg SUBCUT Q12H [facility] Last Admin: 04/09/19 09:30 Dose: 100 mg Sodium Chloride (Normal Saline) 1,000 mls @ 1,000 mls/hr IV ASDIRECTED [facility] Last Admin: 04/08/19 22:00 Dose: 1,000 mls/hr Potassium Chloride 20 meq/ (Premix) 100 mls @ 50 mls/hr IV ONETIME ONE Stop: 04/09/19 02:51 Last Admin: 04/09/19 01:37 Dose: 50 mls/hr Sodium Chloride (Normal Saline) 1,000 mls @ 125 mls/hr IV ASDIRECTED [facility] Last Admin: 04/09/19 09:45 Dose: 125 mls/hr Sodium Chloride (Normal Saline) 100 mls @ 4 mls/sec IV ASDIRECTED [facility] Stop: 04/09/19 16:00 Last Admin: 04/09/19 08:56 Dose: 4 mls/sec Lidocaine HCl (Xylocaine-Mpf 1%) 2 ml INJECT ONETIME ONE Stop: 04/09/19 01:24 Last Admin: 04/09/19 02:21 Dose: 2 ml Lorazepam (Ativan) 1 mg IV Q6H PRN PRN Reason: Nausea/Vomiting Morphine Sulfate (Morphine) 2 mg IVPUSH Q2H PRN PRN Reason: Pain (severe 7-10) - Exam Quality Assessment: DVT Prophylaxis General: Alert, Oriented, Cooperative, Mild Distress Lungs: Clear to Auscultation, Normal Respiratory Effort Cardiovascular: Regular Rate, Regular Rhythm, No Murmurs GI/Abdominal Exam: Soft, Non-Tender, No Organomegaly, No Distention Extremities: Leg Pain (Edema and pain right lower extremity) - Problem List Review Problem List Initiated/Reviewed/Updated: Yes - My Orders Last 24 Hours: My Active Orders 04/09/19 08:45 Iopamidol [Isovue-370 (76%)] 100 ml IV . DIRECTED 04/09/19 10:27 Convert IV to Saline Lock [OM.PC] Routine 04/09/19 10:28 Enoxaparin [Lovenox] 80 mg SUBCUT Q12H Warfarin [Coumadin] 7.5 mg PO ONETIME ONE 04/09/19 10:29 LORazepam [Ativan] 0.5 mg IV Q4H PRN 04/09/19 21:00 Colchicine [Colcrys] 0.6 mg PO BID 04/10/19 05:00 BASIC METABOLIC PANEL,BMP [CHEM] Timed CBC WITH AUTO DIFF [HEME] Timed 04/10/19 05:11 INR,PT,PROTHROMBIN TIME [COAG] AM 04/10/19 09:00 Vaccines to be Administered [RC] PER UNIT ROUTINE Diphth,Pertuss(Acell),Tet Vac [Adacel] 0.5 ml IM .ONCE ONE - Plan Plan:: ASSESSMENT / PLAN RIGHT LEG DVT AND BILATERAL PULMONARY EMBOLI-review his history of DVT and pulmonary emboli, underlying metastatic prostate carcinoma -Lovenox 80mg subcut bid -Warfarin 7.5 mg by mouth today -INR in a.m. -Telemetry -continue pulse ox -Saline lock IV HYPOKALEMIA - resolved after replacement -BMP in am COPD -order nebs prn TOBACCO DEPENDENCE -declines patch or gum PROSTATE CANCER WITH METS TO BONE -Flexeril 10 mg po tid prn muscle spasms DIARRHEA-resolved Maintenance issues -Orders home meds: -Nutrition: Regular diet -Caruos catheter not indicated at this time -DVT: Lovenox 80 mg subcut bid -GI Prophalaxis; Prilosec 20 mg po bid CODE STATUS: Full Admission status: Changed to inpatient status, expect at least a 2 night hospital stay for evaluation and management of right leg DVT and bilateral pulmonary emboli Disposition - home with family, call Randy Baez [phone] with any concerns Primary care provider: Dr. Keen Speciality: Dr. Scott, Oncology [facility], next appt 06-08-2019 Hospitalist: Dr. Asa Patel
[2019-04-09] MEDS: Pantoprazole 40 MG Tab.CR PO SCH (10:53)
[2019-04-09] MEDS: Sertraline 50 MG Tab PO SCH (10:53)
[2019-04-09] MEDS ORDERED: Warfarin 2.5 MG Tab PO ONE (11:30)
[2019-04-09] MEDS: Colchicine 0.6 MG Tab PO SCH (20:24)
[2019-04-09] MEDS: Enoxaparin 80 MG/0.8 ML Syringe SUBCUT SCH (20:24)
[2019-04-10] MEDS: Albuterol/Ipratropium 3.0-0.5 MG/3 ML Neb Soln NEB SCH ×4 (07:26→21:31)
[2019-04-10] MEDS: Pantoprazole 40 MG Tab.CR PO SCH (07:29)
[2019-04-10] MEDS: Enoxaparin 80 MG/0.8 ML Syringe SUBCUT SCH ×2 (08:51→21:20)
[2019-04-10] MEDS: Sertraline 50 MG Tab PO SCH (08:52)
[2019-04-10] MEDS: Colchicine 0.6 MG Tab PO SCH ×2 (08:52→21:20)
[2019-04-10] MEDS ORDERED: Diphtheria,Pertussis(Acell),Tetanus Vaccine 0.5 ML SDV IM ONE (09:00)
[2019-04-10] MEDS: Acetaminophen 325 MG Tab PO PRN ×2 (09:01→21:31)
[2019-04-10] MEDS: oxyCODONE 5 MG Tab PO PRN ×2 (09:02→21:31)
[2019-04-10] MEDS ORDERED: Warfarin 2.5 MG Tab PO ONE (10:00)
--- NOTE | 2019-04-10 13:51 | PCM.PN ---
- General Info Date of Service: 04/10/19 Subjective Update: Mr. Baez has been stable since yesterday, much of his chest and back pain has resolved. Continues to experience swelling of his right lower extremity, pain with ambulation. Functional Status: Reports: Tolerating Diet, Ambulating, Urinating - Review of Systems General: Reports: Weakness. Denies: Fever, Chills Pulmonary: Reports: No Symptoms Cardiovascular: Reports: No Symptoms Gastrointestinal: Reports: No Symptoms Musculoskeletal: Reports: Leg Pain - Patient Data Vitals - Most Recent: Last Vital Signs Temp 98.3 F 04/10/19 11:00 Pulse 65 04/10/19 11:00 Resp 16 04/10/19 11:00 BP 130/62 04/10/19 11:00 Pulse Ox 94 L 04/10/19 12:06 Weight - Most Recent: 172 lb 6.388 oz I&O - Last 24 Hours: Intake & Output 04/09/19 04/10/19 04/10/19 22:59 06:59 14:59 Intake Total 500 Balance 500 Lab Results Last 24 Hours: Laboratory Results - last 24 hr 04/10/19 04/10/19 04/10/19 Range/Units 05:00 05:00 05:11 WBC 8.6 (4.5-11.0) K/uL RBC 3.48 L (4.30-5.90) M/uL Hgb 11.1 L (12.0-15.0) g/dL Hct 34.8 L (40.0-54.0) % MCV 100 H (80-98) fL MCH 32 H (27-31) pg MCHC 32 (32-36) % Plt Count 133 L (150-400) K/uL Neut % (Auto) 68 H (36-66) % Lymph % (Auto) 20 L (24-44) % Rooks % (Auto) 10 H (2-6) % Eos % (Auto) 2 (2-4) % Baso % (Auto) 0 (0-1) % PT 10.5 (9.5-12.0) sec INR 0.97 (0.80-1.20) Sodium 143 (140-148) mmol/L Potassium 4.0 (3.6-5.2) mmol/L Chloride 111 H (100-108) mmol/L Carbon Dioxide 24 (21-32) mmol/L Anion Gap 12.0 (5.0-14.0) mmol/L BUN 25 H (7-18) mg/dL Creatinine 1.3 (0.8-1.3) mg/dL Est Cr Clr Drug Dosing 54.96 mL/min Estimated GFR (MDRD) 55 L (>60) Glucose 95 (74-106) mg/dL Calcium 8.6 (8.5-10.1) mg/dL Med Orders - Current: Current Medications Acetaminophen (Tylenol) 650 mg PO Q4H PRN PRN Reason: Pain (Mild 1-3)/fever Last Admin: 04/10/19 09:01 Dose: 650 mg Albuterol (Proventil Neb Soln) 2.5 mg NEB Q4H PRN PRN Reason: Shortness Of Breath/wheezing Albuterol/Ipratropium (Duoneb 3.0-0.5 Mg/3 Ml) 3 ml NEB QIDRT [facility] Last Admin: 04/10/19 10:51 Dose: 3 ml Colchicine (Colcrys) 0.6 mg PO BID [facility] Last Admin: 04/10/19 08:52 Dose: 0.6 mg Cyclobenzaprine HCl (Flexeril) 10 mg PO Q8H PRN PRN Reason: Muscle Spasm Enoxaparin Sodium (Lovenox) 80 mg SUBCUT Q12H [facility] Stop: 04/10/19 23:59 Last Admin: 04/10/19 08:51 Dose: 80 mg Lorazepam (Ativan) 0.5 mg IV Q4H PRN PRN Reason: Nausea/Vomiting Ondansetron HCl (Zofran Odt) 4 mg PO Q6H PRN PRN Reason: Nausea able to take PO Oxycodone HCl (Oxycodone) 5 mg PO Q4H PRN PRN Reason: Pain (moderate 4-6) Last Admin: 04/10/19 09:02 Dose: 5 mg Pantoprazole Sodium (Protonix) 40 mg PO ACBREAKFAST [facility] Last Admin: 04/10/19 07:29 Dose: 40 mg Sertraline HCl (Zoloft) 50 mg PO DAILY [facility] Last Admin: 04/10/19 08:52 Dose: 50 mg Discontinued Medications Diphtheria/Tetanus/Acell Pertussis (Adacel) 0.5 ml IM .ONCE ONE Stop: 04/10/19 09:01 Last Admin: 04/10/19 13:46 Dose: Not Given Enoxaparin Sodium (Lovenox) 100 mg SUBCUT ONETIME ONE Stop: 04/08/19 23:10 Last Admin: 04/09/19 00:14 Dose: 100 mg Enoxaparin Sodium (Lovenox) 100 mg SUBCUT Q12H [facility] Last Admin: 04/09/19 09:30 Dose: 100 mg Sodium Chloride (Normal Saline) 1,000 mls @ 1,000 mls/hr IV ASDIRECTED [facility] Last Admin: 04/08/19 22:00 Dose: 1,000 mls/hr Potassium Chloride 20 meq/ (Premix) 100 mls @ 50 mls/hr IV ONETIME ONE Stop: 04/09/19 02:51 Last Admin: 04/09/19 01:37 Dose: 50 mls/hr Sodium Chloride (Normal Saline) 1,000 mls @ 125 mls/hr IV ASDIRECTED [facility] Last Admin: 04/09/19 09:45 Dose: 125 mls/hr Sodium Chloride (Normal Saline) 100 mls @ 4 mls/sec IV ASDIRECTED [facility] Stop: 04/09/19 16:00 Last Admin: 04/09/19 08:56 Dose: 4 mls/sec Iopamidol (Isovue-370 (76%)) 100 ml IV . DIRECTED [facility] Stop: 04/09/19 16:00 Last Admin: 04/09/19 08:56 Dose: 100 ml Lidocaine HCl (Xylocaine-Mpf 1%) 2 ml INJECT ONETIME ONE Stop: 04/09/19 01:24 Last Admin: 04/09/19 02:21 Dose: 2 ml Lorazepam (Ativan) 1 mg IV Q6H PRN PRN Reason: Nausea/Vomiting Morphine Sulfate (Morphine) 2 mg IVPUSH Q2H PRN PRN Reason: Pain (severe 7-10) Warfarin Sodium (Coumadin) 7.5 mg PO ONETIME ONE Stop: 04/09/19 11:31 Last Admin: 04/09/19 12:17 Dose: 7.5 mg Warfarin Sodium (Coumadin) 7.5 mg PO ONETIME ONE Stop: 04/10/19 10:01 Last Admin: 04/10/19 11:07 Dose: 7.5 mg - Exam Quality Assessment: DVT Prophylaxis General: Alert, Oriented, Cooperative, Mild Distress Lungs: Clear to Auscultation, Normal Respiratory Effort Cardiovascular: Regular Rate, Regular Rhythm, No Murmurs GI/Abdominal Exam: Soft, Non-Tender, No Organomegaly, No Distention Extremities: Pedal Edema (Right leg), Leg Pain - Problem List Review Problem List Initiated/Reviewed/Updated: Yes - My Orders Last 24 Hours: My Active Orders 04/09/19 14:34 Up ad Elyssa [RC] ASDIRECTED 04/09/19 21:00 Colchicine [Colcrys] 0.6 mg PO BID Enoxaparin [Lovenox] 80 mg SUBCUT Q12H 04/10/19 09:00 Vaccines to be Administered [RC] PER UNIT ROUTINE 04/11/19 05:11 INR,PT,PROTHROMBIN TIME [COAG] AM 04/11/19 09:00 Enoxaparin [Lovenox] 120 mg SUBCUT DAILY - Plan Plan:: ASSESSMENT / PLAN RIGHT LEG DVT AND BILATERAL PULMONARY EMBOLI-history of DVT and pulmonary emboli , underlying metastatic prostate carcinoma -Lovenox 80mg subcut bid, transition to once daily dosing 120 mg tomorrow -Warfarin 7.5 mg by mouth today -INR in a.m. -Saline lock IV HYPOKALEMIA - resolved after replacement COPD -order nebs prn TOBACCO DEPENDENCE -declines patch or gum PROSTATE CANCER WITH METS TO BONE -Flexeril 10 mg po tid prn muscle spasms DIARRHEA-resolved Maintenance issues -Orders home meds: -Nutrition: Regular diet -Caruso catheter not indicated at this time -DVT: Lovenox 80 mg subcut bid -GI Prophalaxis; Prilosec 20 mg po bid CODE STATUS: Full Admission status: Changed to inpatient status, expect at least a 2 night hospital stay for evaluation and management of right leg DVT and bilateral pulmonary emboli Disposition - home with family tomorrow, call Son Kelton Baez [phone] with any concerns Primary care provider: Dr. Keen Speciality: Dr. Scott, Oncology [facility], next appt 06-08-2019 Hospitalist: Dr. Asa Patel
[2019-04-11 03:24] VITALS: BP 139/74
[2019-04-11] MEDS: Albuterol/Ipratropium 3.0-0.5 MG/3 ML Neb Soln NEB SCH ×2 (07:42→10:44)
[2019-04-11] MEDS: Colchicine 0.6 MG Tab PO SCH (08:05)
[2019-04-11] MEDS: Pantoprazole 40 MG Tab.CR PO SCH (08:05)
[2019-04-11] MEDS: Sertraline 50 MG Tab PO SCH (08:05)
[2019-04-11] MEDS ORDERED: Enoxaparin 120 MG/0.8 ML Syringe SUBCUT SCH (09:00)
[2019-04-11] MEDS ORDERED: Warfarin 5 MG Tab PO ONE (09:30)
[2019-04-11] MEDS: oxyCODONE 5 MG Tab PO PRN (09:46)
[2019-04-11] MEDS: Acetaminophen 325 MG Tab PO PRN (09:48)
--- NOTE | 2019-04-11 11:41 | PCM.DCSUM1 ---
Discharge Summary - Hospital Course Brief History: Mr. Baez is a 68-year-old gentleman who was admitted through the emergency department after a syncopal episode with back and chest pain. On evaluation found to have right leg deep vein thrombosis and bilateral pulmonary infiltrate with pulmonary infarction. - Discharge Data Discharge Date: 04/11/19 Discharge Disposition: Home, Self-Care 01 Condition: Stable - Discharge Diagnosis/Problem(s) (1) Pulmonary embolism and infarction SNOMED Code(s): 3718489394970 ICD Code: I26.99 - OTHER PULMONARY EMBOLISM WITHOUT ACUTE COR PULMONALE Status: Acute Current Visit: Yes (2) Syncope SNOMED Code(s): 739367884 ICD Code: R55 - SYNCOPE AND COLLAPSE Status: Acute Current Visit: Yes Qualifiers: Syncope type: unspecified Qualified Code(s): R55 - Syncope and collapse (3) Dehydration, moderate SNOMED Code(s): 5857287875238 ICD Code: E86.0 - DEHYDRATION Status: Acute Current Visit: Yes (4) DVT of lower limb, acute SNOMED Code(s): 359884443431 ICD Code: I82.409 - ACUTE EMBOLISM AND THOMBOS UNSP DEEP VN UNSP LOWER EXTREMITY Status: Acute Priority: High Current Visit: Yes Qualifiers: Affected thrombotic vein of extremity: femoral Laterality: right Qualified Code(s): I82.411 - Acute embolism and thrombosis of right femoral vein (5) Prostate cancer metastatic to bone SNOMED Code(s): 095395746 ICD Code: C61 - MALIGNANT NEOPLASM OF PROSTATE; C79.51 - SECONDARY MALIGNANT NEOPLASM OF BONE Status: Chronic Priority: Low Current Visit: Yes - Patient Summary/Data Hospital Course: Mr. Baez is a 68-year-old gentleman who was admitted through the emergency department with back pain, neck pain, and syncope, secondary to deep vein thrombosis and bilateral pulmonary emboli. He does have a known history of metastatic prostate carcinoma and is currently actively treated for that. He has had one previous episode of deep vein thrombosis and pulmonary emboli, treated with oral anticoagulation. He admits that he has been doing a lot of sitting within the past few weeks which may have contributed to the development of deep vein thrombosis. Venous Doppler study was obtained in the emergency department and showed evidence of fairly extensive deep vein thrombosis in the right lower extremity. CT scan of the chest with PE protocol obtained on the morning after admission shows evidence of bilateral pulmonary emboli with a small pulmonary infarct. We did discuss anticoagulation and he prefers therapy with warfarin again. He was started on subcutaneous Lovenox 1 mg/kg twice daily while in the emergency department. On the day after admission he was started on oral anticoagulation with warfarin; on April 09 he received a dose of 7.5 mg, on April 10 he received a dose of 7.5 mg. By April 11 the day of discharge, INR remained nearly normal and he was given a dose of warfarin of 10 mg. He will be scheduled for Coumadin clinic appointment for April 12, further dosing of warfarin will depend on that level and recommendations from the Coumadin clinic. He was transitioned to once daily dosing of Lovenox 120 mg subcutaneously daily. He will continue Lovenox dosing for at least a total of 5 days, or 2 days after INR becomes therapeutic, whichever is longer. Follow-up appointment will be scheduled with his primary care provider within one week. Activity will be as tolerated and he will resume his usual diet. - Patient Instructions Diet: Usual Diet as Tolerated Activity: As Tolerated Other/Special Instructions: Follow-up in the Coumadin clinic April 12. Please schedule follow-up appointment with primary care provider within one week. Continue Lovenox injections for a total of 5 days, or 2 days after INR becomes therapeutic, whichever is longer. - Discharge Plan *PRESCRIPTION DRUG MONITORING PROGRAM REVIEWED*: Not Applicable *COPY OF PRESCRIPTION DRUG MONITORING REPORT IN PATIENT PARISH: Not Applicable Prescriptions/Med Rec: Enoxaparin Sodium [Lovenox] 120 mg SQ DAILY #5 ml oxyCODONE 5 mg PO Q4H PRN #10 tablet PRN Reason: Pain (Moderate 4-6) Warfarin [Coumadin] 10 mg PO DAILY #120 tab Home Medications: Home Meds Omeprazole [Prilosec] 20 mg PO DAILY 08/23/15 [History] Sertraline [Zoloft] 50 mg PO DAILY 08/23/15 [History] Vit A/Vit C/Vit E/Zinc/Copper [Preservision Areds Softgel] 1 each PO BID [History] Colchicine 0.6 mg PO BID #60 tablet 02/10/19 [Rx] Ibuprofen [Motrin] 600 mg PO Q8H #21 tablet 02/10/19 [Rx] Enoxaparin Sodium [Lovenox] 120 mg SQ DAILY #5 ml 04/11/19 [Rx] Warfarin [Coumadin] 10 mg PO DAILY #120 tab 04/11/19 [Rx] oxyCODONE 5 mg PO Q4H PRN #10 tablet 04/11/19 [Rx] Patient Handouts: Vitamin K Foods and Warfarin, Enoxaparin injection, Warfarin tablets, Pulmonary Embolism, Deep Vein Thrombosis Referrals: Michael Keen MD [Physician] - 04/14/19 1:00 pm (Please arrive 15 minutes early to register for your appointment.) Coumadin,Clinic [Ordering Only Provider] - 04/12/19 11:30 am - Discharge Summary/Plan Comment DC Time >30 min.: No - Patient Data Vitals - Most Recent: Last Vital Signs Temp 96.9 F 04/11/19 03:23 Pulse 70 04/11/19 10:44 Resp 18 04/11/19 03:23 BP 139/74 04/11/19 03:23 Pulse Ox 99 04/11/19 03:23 Weight - Most Recent: 172 lb 6.388 oz I&O - Last 24 hours: Intake & Output 04/10/19 04/11/19 04/11/19 22:59 06:59 14:59 Intake Total 1180 Balance 1180 Lab Results - Last 24 hrs: Laboratory Results - last 24 hr 04/11/19 Range/Units 05:30 PT 11.1 (9.5-12.0) sec INR 1.03 (0.80-1.20) Med Orders - Current: Current Medications Acetaminophen (Tylenol) 650 mg PO Q4H PRN PRN Reason: Pain (Mild 1-3)/fever Last Admin: 04/11/19 09:48 Dose: 650 mg Albuterol (Proventil Neb Soln) 2.5 mg NEB Q4H PRN PRN Reason: Shortness Of Breath/wheezing Albuterol/Ipratropium (Duoneb 3.0-0.5 Mg/3 Ml) 3 ml NEB QIDRT [facility] Last Admin: 04/11/19 10:44 Dose: 3 ml Colchicine (Colcrys) 0.6 mg PO BID [facility] Last Admin: 04/11/19 08:05 Dose: 0.6 mg Cyclobenzaprine HCl (Flexeril) 10 mg PO Q8H PRN PRN Reason: Muscle Spasm Enoxaparin Sodium (Lovenox) 120 mg SUBCUT DAILY [facility] Last Admin: 04/11/19 08:04 Dose: 120 mg Lorazepam (Ativan) 0.5 mg IV Q4H PRN PRN Reason: Nausea/Vomiting Ondansetron HCl (Zofran Odt) 4 mg PO Q6H PRN PRN Reason: Nausea able to take PO Oxycodone HCl (Oxycodone) 5 mg PO Q4H PRN PRN Reason: Pain (moderate 4-6) Last Admin: 04/11/19 09:46 Dose: 5 mg Pantoprazole Sodium (Protonix) 40 mg PO ACBREAKFAST [facility] Last Admin: 04/11/19 08:05 Dose: 40 mg Sertraline HCl (Zoloft) 50 mg PO DAILY [facility] Last Admin: 04/11/19 08:05 Dose: 50 mg Discontinued Medications Diphtheria/Tetanus/Acell Pertussis (Adacel) 0.5 ml IM .ONCE ONE Stop: 04/10/19 09:01 Last Admin: 04/10/19 13:46 Dose: Not Given Enoxaparin Sodium (Lovenox) 100 mg SUBCUT ONETIME ONE Stop: 04/08/19 23:10 Last Admin: 04/09/19 00:14 Dose: 100 mg Enoxaparin Sodium (Lovenox) 100 mg SUBCUT Q12H [facility] Last Admin: 04/09/19 09:30 Dose: 100 mg Enoxaparin Sodium (Lovenox) 80 mg SUBCUT Q12H [facility] Stop: 04/10/19 23:59 Last Admin: 04/10/19 21:20 Dose: 80 mg Sodium Chloride (Normal Saline) 1,000 mls @ 1,000 mls/hr IV ASDIRECTED [facility] Last Admin: 04/08/19 22:00 Dose: 1,000 mls/hr Potassium Chloride 20 meq/ (Premix) 100 mls @ 50 mls/hr IV ONETIME ONE Stop: 04/09/19 02:51 Last Admin: 04/09/19 01:37 Dose: 50 mls/hr Sodium Chloride (Normal Saline) 1,000 mls @ 125 mls/hr IV ASDIRECTED [facility] Last Admin: 04/09/19 09:45 Dose: 125 mls/hr Sodium Chloride (Normal Saline) 100 mls @ 4 mls/sec IV ASDIRECTED [facility] Stop: 04/09/19 16:00 Last Admin: 04/09/19 08:56 Dose: 4 mls/sec Iopamidol (Isovue-370 (76%)) 100 ml IV . DIRECTED [facility] Stop: 04/09/19 16:00 Last Admin: 04/09/19 08:56 Dose: 100 ml Lidocaine HCl (Xylocaine-Mpf 1%) 2 ml INJECT ONETIME ONE Stop: 04/09/19 01:24 Last Admin: 04/09/19 02:21 Dose: 2 ml Lorazepam (Ativan) 1 mg IV Q6H PRN PRN Reason: Nausea/Vomiting Morphine Sulfate (Morphine) 2 mg IVPUSH Q2H PRN PRN Reason: Pain (severe 7-10) Warfarin Sodium (Coumadin) 7.5 mg PO ONETIME ONE Stop: 04/09/19 11:31 Last Admin: 04/09/19 12:17 Dose: 7.5 mg Warfarin Sodium (Coumadin) 7.5 mg PO ONETIME ONE Stop: 04/10/19 10:01 Last Admin: 04/10/19 11:07 Dose: 7.5 mg Warfarin Sodium (Coumadin) 10 mg PO ONETIME ONE Stop: 04/11/19 09:31 Last Admin: 04/11/19 10:58 Dose: 10 mg - Exam General: Reports: Alert, Oriented, Cooperative, Mild Distress Lungs: Reports: Clear to Auscultation, Normal Respiratory Effort Cardiovascular: Reports: Regular Rate, Regular Rhythm, No Murmurs GI/Abdominal Exam: Soft, Non-Tender, No Organomegaly, No Distention Extremities: Leg Pain (Swelling and pain right lower extremity)
== END 2019-04-11 12:15 | disposition home or self-care (01) | DRG 299 ==
LOC: JP.ED 21:12 → JP.MS 23:44 → UNDOADMOB 23:44 → JP.MS 23:45 → OBSVTOIN 04-09 10:37
PROVIDERS: ADMIT Hospitalist; ATTEND Hospitalist
DX: I82.411 Acute embolism and thrombosis of right femoral vein (principal); I26.99 Other pulmonary embolism without acute cor pulmonale; C79.51 Secondary malignant neoplasm of bone; E87.6 Hypokalemia; E86.0 Dehydration; F17.200 Nicotine dependence, unspecified, uncomplicated; C61 Malignant neoplasm of prostate; H54.7 Unspecified visual loss; E78.00 Pure hypercholesterolemia, unspecified; J44.9 Chronic obstructive pulmonary disease, unspecified; K21.9 Gastro-esophageal reflux disease without esophagitis; M19.90 Unspecified osteoarthritis, unspecified site; Z86.711 Personal history of pulmonary embolism; F41.9 Anxiety disorder, unspecified; F32.9 Major depressive disorder, single episode, unspecified; R33.9 Retention of urine, unspecified; F17.210 Nicotine dependence, cigarettes, uncomplicated; K52.9 Noninfective gastroenteritis and colitis, unspecified; H91.90 Unspecified hearing loss, unspecified ear; Z79.899 Other long term (current) drug therapy; Z90.89 Acquired absence of other organs; Z79.01 Long term (current) use of anticoagulants; Z92.3 Personal history of irradiation
CPT/HCPCS: 36415 ×2; 71275; 80048; 80053; 85025 ×2; 85610; 93971; 94640 ×2; 96361 ×2; 96372 ×2; 96374; 99285; G0378 ×2; J1650 ×2; J2001; J3480; J7030 ×4; Q9967; 96360; A9270-GY; J7620-GY

== ENCOUNTER 2019-12-31 13:47 | Emergency (ER) | payer MEDICARE, BC ==
--- NOTE | 2019-12-31 14:05 | EDM.PDOC ---
ED HPI GENERAL MEDICAL PROBLEM - General Chief Complaint: Neuro Symptoms/Deficits Stated Complaint: MAYBE STROKE??? Time Seen by Provider: 12/31/19 14:06 Source of Information: Reports: Patient, Family, Old Records History Limitations: Reports: Other (Patient not able to communicate well) - History of Present Illness INITIAL COMMENTS - FREE TEXT/NARRATIVE: 69 yo male awoke yesterday with some difficulty speaking(no slurring, slow to speak), a somewhat unsteady gait, and mild confusion. Sx's have not improved since then so called their primary today who directed then to the ER. Is on warfarin, no recent INR. Onset: Sudden Onset Date: 12/31/19 Duration: Day(s): (1+), Constant Location: Reports: Head Quality: Reports: Other (pain not reported) Severity: Mild Improves with: Reports: None Worsens with: Reports: Other (uncertain) Context: Reports: Other (See HPI) Associated Symptoms: Reports: Confusion (mild), Loss of Appetite, Other (gait slightly unsteady) Treatments EMBOSSING CLERK: Reports: Other (see below) (none) - Related Data Allergies Allergy/AdvReac Type Severity Reaction Status Date / Time No Known Allergies Allergy Verified 12/31/19 13:59 Home Meds: Home Meds Omeprazole [Prilosec] 20 mg PO DAILY 08/23/15 [History] Sertraline [Zoloft] 50 mg PO DAILY 08/23/15 [History] Colchicine 0.6 mg PO BID #60 tablet 02/10/19 [Rx] Ibuprofen [Motrin] 600 mg PO Q8H #21 tablet 02/10/19 [Rx] Warfarin [Coumadin] 10 mg PO DAILY #120 tab 04/11/19 [Rx] Past Medical History HEENT History: Reports: Hard of Hearing, Impaired Vision Cardiovascular History: Reports: High Cholesterol, Other (See Below) Other Cardiovascular History: Pericarditis many years ago Respiratory History: Reports: COPD, PE Other Respiratory History: emphysemia Gastrointestinal History: Reports: Chronic Diarrhea, GERD, Hemorrhoids Genitourinary History: Reports: Prostate Disorder, Retention, Urinary, Other ( See Below) Other Genitourinary History: Prostate cancer Musculoskeletal History: Reports: Osteoarthritis Psychiatric History: Reports: Anxiety, Depression Hematologic History: Reports: Other (See Below) Other Hematologic History: lymes Oncologic (Cancer) History: Reports: Prostate Other Oncologic History: Prostate cancer dx in 2004, 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 Currently getting radiation to that area. Sees Alejandro Higginbotham, urologist at [place]. - Infectious Disease History Infectious Disease History: Reports: Chicken Pox - Past Surgical History Head Surgeries/Procedures: Reports: None HEENT Surgical History: Reports: Oral Surgery, Tonsillectomy Social & Family History - Family History Family Medical History: Noncontributory - Caffeine Use Caffeine Use: Reports: Coffee - Living Situation & Occupation Living situation: Reports: ( to Kori, 2 grown children, 4 children. They are help care for man Son's 36 year old who has early onset dementia and man Grandchildren while the Son works.) Occupation: Retired ED ROS GENERAL - Review of Systems Review Of Systems: See Below Constitutional: Reports: Decreased Appetite HEENT: Reports: No Symptoms Respiratory: Reports: No Symptoms Cardiovascular: Reports: No Symptoms GI/Abdominal: Reports: Decreased Appetite : Reports: No Symptoms Musculoskeletal: Reports: No Symptoms Skin: Reports: No Symptoms Neurological: Reports: Confusion (mild), Change in Speech (less spontaenous), Gait Disturbance (mild). Denies: Dizziness, Headache, Seizure, Syncope ED EXAM, NEURO - Physical Exam Exam: See Below Exam Limited By: No Limitations General Appearance: Alert, WD/WN, No Apparent Distress Eye Exam: Bilateral Eye: EOMI, Normal Inspection, PERRL Ears: Normal External Exam, Normal Canal, Hearing Grossly Normal Nose: Normal Inspection, No Blood Throat/Mouth: Normal Inspection, Normal Lips, Normal Oropharynx, Normal Voice, No Airway Compromise Head Exam: Atraumatic, Normocephalic Neck: Normal Inspection Respiratory/Chest: No Respiratory Distress, Lungs Clear, Normal Breath Sounds, No Accessory Muscle Use Cardiovascular: Regular Rate, Rhythm, No Edema GI/Abdominal: Normal Bowel Sounds, Soft, Non-Tender, No Distention Neurological: Alert, CN II-XII Intact, No Motor/Sensory Deficits, Oriented x 3, Babinski (? upgoing toes bilaterally), Difficulty Walking (slightly unsteady gait) DTR: 4+: Bicep (R), Bicep (L), Tricep (R), Tricep (L), Patella (R), Patella (L) , Achilles (R), Achilles (L) Back Exam: Normal Inspection. No: CVA Tenderness (R), CVA Tenderness (L) Extremities: Normal Inspection, Normal Range of Motion, Non-Tender, No Pedal Edema Psychiatric: Normal Mood, Flat Affect Skin Exam: Warm, Dry, Intact, Normal Color, No Rash Course - Vital Signs Text/Narrative:: Discussed with Dr. Cantu, [facility] neurology @ 1510h. Last Recorded V/S: Last Vital Signs Temp 36.5 C 12/31/19 14:11 Pulse 84 12/31/19 16:05 Resp 18 12/31/19 16:05 BP 148/90 H 12/31/19 16:05 Pulse Ox 96 12/31/19 15:13 - Orders/Labs/Meds Orders: Active Orders 24 hr Category Date Time Status Cardiac Monitoring [RC] .As Directed Care 12/31/19 14:00 Active Ang Neck [CT] Stat Exams 12/31/19 15:12 Taken Lactated Ringers [Ringers, Lactated] 1,000 ml Med 12/31/19 15:30 Active IV ASDIRECTED Medication Orders Lactated Ringer's (Ringers, Lactated) 1,000 mls @ 1,000 mls/hr IV ASDIRECTED [facility] Last Admin: 12/31/19 15:34 Dose: 1,000 mls/hr Labs: Laboratory Tests 12/31/19 12/31/19 12/31/19 Range/Units 14:10 14:10 14:10 WBC 10.9 (4.5-11.0) K/uL RBC 4.95 (4.30-5.90) M/uL Hgb 15.2 H D (12.0-15.0) g/dL Hct 48.0 (40.0-54.0) % MCV 97 (80-98) fL MCH 31 (27-31) pg MCHC 32 (32-36) % Plt Count 177 (150-400) K/uL PT 64.9 H (9.5-12.0) sec INR 6.69 H* D (0.80-1.20) Sodium 140 (140-148) mmol/L Potassium 3.8 (3.6-5.2) mmol/L Chloride 103 (100-108) mmol/L Carbon Dioxide 24 (21-32) mmol/L Anion Gap 13.0 (5.0-14.0) mmol/L BUN 39 H D (7-18) mg/dL Creatinine 1.7 H (0.8-1.3) mg/dL Est Cr Clr Drug Dosing 40.24 mL/min Estimated GFR (MDRD) 40 L (>60) Glucose 104 (74-106) mg/dL Calcium 9.6 (8.5-10.1) mg/dL Troponin I < 0.017 (0.000-0.056) ng/mL Meds: Medications Generic Name Dose Route Start Last Admin Trade Name Freq PRN Reason Stop Dose Admin Lactated Ringer's 1,000 mls @ 1,000 mls/hr 12/31/19 15:30 12/31/19 15:34 Ringers, Lactated IV 1,000 mls/hr ASDIRECTED [facility] Administration Discontinued Medications Generic Name Dose Route Start Last Admin Trade Name Freq PRN Reason Stop Dose Admin Sodium Chloride 100 mls @ 4 mls/sec 12/31/19 15:30 12/31/19 15:32 Normal Saline IV 12/31/19 15:31 4 mls/sec ASDIRECTED [facility] Administration Iopamidol 100 ml 12/31/19 15:30 12/31/19 15:31 Isovue-370 (76%) IV 12/31/19 15:31 100 ml . DIRECTED [facility] Administration Sodium Chloride 10 ml 12/31/19 15:21 12/31/19 15:32 Saline Flush FLUSH 12/31/19 15:22 10 ml ONETIME ONE Administration - Radiology Interpretation Free Text/Narrative:: Head CT scan-neg CTA head and neck-Preliminary Report: 1. Normal posterior circulation. 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 Dominant right vertebral artery. 2. 40 percent narrowing of right ICA at origin due to atherosclerosis 3. Minimal narrowing of left ICA at origin due to atherosclerosis. Read by: Michael Kc MD @ 12/31/2019 16:24:25 CT Results Date: 12/31/19 CT Results Time: 14:59 Departure - Departure Time of Disposition: 16:50 Disposition: Home, Self-Care 01 Condition: Fair Clinical Impression: Elevated INR CVA (cerebral vascular accident) Qualifiers: CVA mechanism: unspecified Qualified Code(s): I63.9 - Cerebral infarction, unspecified - Discharge Information *PRESCRIPTION DRUG MONITORING PROGRAM REVIEWED*: Not Applicable *COPY OF PRESCRIPTION DRUG MONITORING REPORT IN PATIENT PARIHS: Not Applicable Instructions: Ischemic Stroke, [id number] Referrals: PCP,None [Primary Care Provider] - Forms: ED Department Discharge Additional Instructions: Hold your warfarin over the weekend. See Dr. Keen on Friday to discuss an outpatient MRI of the brain and possible neurology referral. Will need a repeat INR on Friday. Continue other medications as before. Return as needed. Sepsis Event Note - Focused Exam Vital Signs: Vital Signs Temp Pulse Resp BP Pulse Ox 12/31/19 16:05 84 18 148/90 H 12/31/19 15:13 69 18 139/88 96 12/31/19 14:11 36.5 C 81 20 137/87 97 12/31/19 14:10 36.5 C 81 20 137/87 97 Date Exam was Performed: 12/31/19 Time Exam was Performed: 16:42 - My Orders Last 24 Hours: My Active Orders 12/31/19 14:00 Cardiac Monitoring [RC] .As Directed 12/31/19 15:12 Ang Neck [CT] Stat 12/31/19 15:30 Lactated Ringers [Ringers, Lactated] 1,000 ml IV ASDIRECTED - Assessment/Plan Last 24 Hours: My Active Orders 12/31/19 14:00 Cardiac Monitoring [RC] .As Directed 12/31/19 15:12 Ang Neck [CT] Stat 12/31/19 15:30 Lactated Ringers [Ringers, Lactated] 1,000 ml IV ASDIRECTED
--- NOTE | 2019-12-31 14:54 | CT ---
Head wo Cont CLINICAL HISTORY: CVA COMPARISON: None TECHNIQUE: Transverse scans were obtained from the base of the skull through the vertex without IV contrast on a multislice, multidetector CT scanner. Auto dosage reduction and iterative reconstruction techniques employed. FINDINGS: No focal abnormal parenchymal density is seen. There is no mass effect, hemorrhage, or extraaxial collection. The basal cisterns and sulci over the convexities are prominent. The ventricles are normal for age. There is some after cell room supervisor a change in the basilar artery IMPRESSION: Age-related atrophy. No focal lesion mass effect or hemorrhage
[2019-12-31] MEDS ORDERED: Sodium Chloride 0.9% 10 ML Syringe FLUSH ONE (15:21)
[2019-12-31] MEDS ORDERED: Sodium Chloride 0.9% 100 ML IV SCH (15:30)
[2019-12-31] MEDS ORDERED: Iopamidol 755 Mg/ML 100 ML Bottle IV SCH (15:30)
[2019-12-31] MEDS ORDERED: Lactated Ringers 1,000 ML IV SCH (15:30)
[2019-12-31 16:06] VITALS: BP 148/90; PULSE 84
--- NOTE | 2019-12-31 16:25 | CRLCT ---
DATE: 12/31/2019 CLINICAL HISTORY: Patient with focal neurological deficits TECHNIQUE: Standard helical CT image acquisition through the head and neck was performed after intravenous contrast bolus enhancement. Multiplanar reconstructed images were performed and interpreted. COMPARISON: CT same day. FINDINGS: There is no proximal intracranial large vessel occlusion. There is mild narrowing at the origin of the left subclavian artery. The origins of the rest of the great vessels from the aortic arch are patent. The origin of the right vertebral artery demonstrates mild narrowing. The origin of the left vertebral artery is patent. The common carotid arteries are patent. There is a mild (<50%) stenosis at the origin of the right internal carotid artery by NASCET criteria. This is caused by non-calcified plaque with a <2mm residual lumen. There is no stenosis at the origin of the left internal carotid artery by NASCET criteria. The rest of the cervical segments of the internal carotid arteries are patent up to their intracranial segments. The intracranial segments of the internal carotid arteries are patent. The right vertebral artery is dominant. The cervical segments of the vertebral arteries are patent. The intracranial segments of the vertebral arteries are patent. The middle cerebral arteries are normal without aneurysm or proximal occlusion identified. The anterior cerebral arteries are normal without aneurysm or proximal occlusion identified. The anterior communicating artery is well visualized and appears normal. The basilar artery is normal without aneurysm or occlusion. The posterior cerebral arteries are normal without aneurysm or proximal occlusion. The visualized lung apices demonstrates emphysematous changes. The thyroid gland is unremarkable. The soft tissues of the neck are unremarkable. There are degenerative changes in the cervical spine. IMPRESSION: 1. Mild stenosis at the origins of the left subclavian and dominant right vertebral artery. Otherwise, patent posterior circulation. 2. Mild (<50%) stenosis at the origin of the right internal carotid artery by NASCET criteria caused by non-calcified plaque with a <2mm residual lumen. Please note that all CT scans at this facility use dose modulation, iterative reconstruction, and/or weight-based dosing when appropriate to reduce radiation dose to as low as reasonably achievable. Dictated by Hector Galicia MD @ Dec 31 2019 8:52PM Signed by Dr. Hector Galicia @ Dec 31 2019 9:03PM
== END 2019-12-31 16:51 | disposition home or self-care (01) ==
LOC: JP.ED 13:47
DX: I63.9 Cerebral infarction, unspecified (principal); R79.1 Abnormal coagulation profile; J44.9 Chronic obstructive pulmonary disease, unspecified; F41.9 Anxiety disorder, unspecified; F32.9 Major depressive disorder, single episode, unspecified; Z86.711 Personal history of pulmonary embolism; Z79.01 Long term (current) use of anticoagulants; K21.9 Gastro-esophageal reflux disease without esophagitis; Z79.899 Other long term (current) drug therapy
CPT/HCPCS: 36415; 70450; 70496; 70498; 80048; 84484; 85027; 85610; 96360; 99284; J7050; J7120; Q9967

== ENCOUNTER 2021-01-11 07:18 | Day surgery (SDC) | payer MEDICARE, BC ==
[2021-01-11] MEDS ORDERED: Sodium Chloride 0.9% 10 ML Syringe FLUSH PRN (08:00)
[2021-01-11 10:13] VITALS: BP 143/80; PULSE 60
--- NOTE | 2021-01-11 11:15 | OR ---
DATE OF PROCEDURE: 01/11/2021 SURGEON: Freida Duenas MD POSTOPERATIVE CARE: Postoperative care will be provided mainly at the [address] [place] [address] [facility] in conjunction with [facility]. PREOPERATIVE DIAGNOSIS: Cataract, left eye. POSTOPERATIVE DIAGNOSIS: Cataract, left eye. PROCEDURE: Phacoemulsification with intraocular lens placement, left eye. ANESTHESIA: Topical and intracameral. ESTIMATED BLOOD LOSS: Minimal. COMPLICATIONS: None. PATHOLOGY SPECIMENS: None. SURGICAL FINDINGS: None. INDICATION FOR PROCEDURE: The patient is a 70-year-old male with history of a visually significant cataract in the left eye, which interfered with activities of daily living. This consisted of a nuclear sclerosis cataract. Following careful discussion of the risks, benefits and alternatives to cataract extraction with intraocular lens placement including blindness and , the patient elected to proceed, and informed, written consent was obtained prior to the procedure. DESCRIPTION OF THE PROCEDURE: The patient was previously identified, and a frank placed above the left eye. All sources, including the patient, indicated that the left eye was the correct eye. The patient was subsequently taken to the operating room where standard monitors were applied. The patient was then prepped and draped in the usual sterile fashion for ophthalmic surgery. Attention was first directed at the 12 o'clock position where a paracentesis port was fashioned. Shugar solution followed by Viscoat was instilled into the eye. Attention was then directed to the 8:30 position where a triplanar incision was made in a near-clear manner using a keratome. A continuous capsulorrhexis was then made using a combination of the cystotome and Utrata forceps. Hydrodissection was achieved using a balanced salt solution, and the lens rotated nicely. Phacoemulsification was then done using a modified ezrvup-[id number]-hkatovp technique without complication. Phaco time was 6.92 CDE. The remaining cortex was removed using the irrigation/aspiration handpiece. Provisc was then instilled into the eye. A Technis lens, model DCB00, at 24.5 diopters was then placed in the capsular bag using an [place] injector. The remaining viscoelastic was removed using the irrigation/aspiration forceps. All wounds were then checked and found to be watertight. The lid speculum and drapes were removed. Maxitrol ointment was placed in the patient's left eye, and the eye was shielded. The patient tolerated the procedure well. The patient was instructed to follow up tomorrow. All needle and sponge counts were correct at the end of the procedure. There were no surgical findings. Freida Duenas MD /[id number]
== END 2021-01-11 10:14 | disposition home or self-care (01) ==
LOC: JP.SDS 07:18
PROVIDERS: ATTEND Ophthalmology
DX: H25.12 Age-related nuclear cataract, left eye (principal); J44.9 Chronic obstructive pulmonary disease, unspecified; F17.210 Nicotine dependence, cigarettes, uncomplicated; Z85.46 Personal history of malignant neoplasm of prostate; Z98.890 Other specified postprocedural states
CPT/HCPCS: V2632

== ENCOUNTER 2021-01-25 07:33 | Day surgery (SDC) | payer MEDICARE, BC ==
[2021-01-25 08:47] VITALS: BP 163/90; PULSE 59
[2021-01-25] MEDS ORDERED: Sodium Chloride 0.9% 10 ML Syringe FLUSH SCH (09:00)
--- NOTE | 2021-01-25 15:24 | OR ---
DATE OF PROCEDURE: 01/25/2021 SURGEON: Freida Duenas MD POSTOPERATIVE CARE: Postoperative care will be provided mainly at the [address] [place] [address] [facility] in conjunction with [facility]. PREOPERATIVE DIAGNOSIS: Cataract, right eye. POSTOPERATIVE DIAGNOSIS: Cataract, right eye. PROCEDURE: Phacoemulsification with intraocular lens placement, right eye. ANESTHESIA: Topical and intracameral. ESTIMATED BLOOD LOSS: Minimal. COMPLICATIONS: None. PATHOLOGY SPECIMENS: None. SURGICAL FINDINGS: None. INDICATION FOR PROCEDURE: The patient is a 70-year-old male with history of a visually significant cataract in the right eye, which interfered with activities of daily living. This consisted of a nuclear sclerosis cataract. Following careful discussion of the risks, benefits and alternatives to cataract extraction with intraocular lens placement including blindness and , the patient elected to proceed, and informed, written consent was obtained prior to the procedure. DESCRIPTION OF THE PROCEDURE: The patient was previously identified, and a frank placed above the right eye. All sources, including the patient, indicated that the right eye was the correct eye. The patient was subsequently taken to the operating room where standard monitors were applied. The patient was then prepped and draped in the usual sterile fashion for ophthalmic surgery. Attention was first directed at the 12 o'clock position where a paracentesis port was fashioned. Shugar solution followed by Viscoat was instilled into the eye. Attention was then directed to the 8:30 position where a triplanar incision was made in a near-clear manner using a keratome. A continuous capsulorrhexis was then made using a combination of the cystotome and Utrata forceps. Hydrodissection was achieved using a balanced salt solution, and the lens rotated nicely. Phacoemulsification was then done using a modified [id number]-auz-uvzabur technique without complication. Phaco time was 5.17 CDE. The remaining cortex was removed using the irrigation/aspiration handpiece. Provisc was then instilled into the eye. A Technis lens, model DCB00, at 24.5 diopters was then placed in the capsular bag using an [place] injector. The remaining viscoelastic was removed using the irrigation/aspiration forceps. All wounds were then checked and found to be watertight. The lid speculum and drapes were removed. Maxitrol ointment was placed in the patient's right eye, and the eye was shielded. The patient tolerated the procedure well. The patient was instructed to follow up tomorrow. All needle and sponge counts were correct at the end of the procedure. Freida Duenas MD /[id number]
== END 2021-01-25 09:00 | disposition home or self-care (01) ==
LOC: JP.SDS 07:33
PROVIDERS: ATTEND Ophthalmology
DX: H26.9 Unspecified cataract (principal)
CPT/HCPCS: 66984; V2632

== ENCOUNTER 2025-01-12 11:15 | Emergency (ER) | payer MEDICARE, BC ==
[2025-01-12 11:57] VITALS: BP 151/69; PULSE 66
[2025-01-12 12:03] LABS: BASOPHILS PERCENT AUTO 0.2 % (0.1-1.3); EOSINOPHILS ABSOLUTE AUTO 0.07 K/uL (0.00-0.40); EOSINOPHILS PERCENT AUTO 0.9 % (0.0-5.4); HEMATOCRIT 39.2 % (38.4-49.7); HEMOGLOBIN 12.9 g/dL (12.9-16.9); IMMATURE GRAN PERCENT AUTO 0.2 % (0.0-0.7); LYMPHOCYTES ABSOLUTE AUTO 1.71 K/uL (0.8-3.3); LYMPHOCYTES PERCENT AUTO 21.3 % (11.4-47.7); MEAN CORPUSCULAR HEMOGLOBIN 33.7 pg (31.6-35.5); MEAN CORPUSCULAR HGB CONC 32.9 g/dL (31.6-35.5); MEAN CORPUSCULAR VOLUME 102.3 fL (81.4-99.0); MONOCYTES ABSOLUTE AUTO 0.52 K/uL (0.20-0.90); MONOCYTES PERCENT AUTO 6.5 % (3.3-12.6); NEUTROPHILS ABSOLUTE AUTO 5.67 K/uL (1.0-7.6); NEUTROPHILS PERCENT AUTO 70.9 % (40.0-78.1); PLATELET COUNT,PLT 137 K/uL (130-375); RED BLOOD CELL COUNT 3.83 M/uL (4.14-5.76)
[2025-01-12 12:23] LABS: A/G RATIO 1.1 (1.2-2.2); ALANINE AMINOTRANSFERASE,ALT 18 U/L (12-78); ALBUMIN 3.5 g/dL (3.4-5.0); ALKALINE PHOSPHATASE 78 U/L (46-116); ANION GAP 10.6 mmol/L (5.0-14.0); ASPARTATE AMNIOTRANSFERASE,AST 16 U/L (15-37); BILIRUBIN TOTAL 0.4 mg/dL (0.2-1.0); BLOOD UREA NITROGEN,BUN 38 mg/dL (7-18); CALCIUM 9.6 mg/dL (8.5-10.1); CARBON DIOXIDE,CO2 26 mmol/L (21-32); CHLORIDE,CL 106 mmol/L (100-108); CREATININE 1.5 mg/dL (0.8-1.3); EST CRCL DRUG DOSING (CG) 38.09 mL/min; ESTIMATED GFR 49 mL/min (>60); GLUCOSE RANDOM 98 mg/dL (74-106); POTASSIUM,K 3.8 mmol/L (3.6-5.2); PROTEIN TOTAL,TP 6.8 g/dL (6.4-8.2); SODIUM,NA 143 mmol/L (140-148)
[2025-01-12 12:24] LABS: BASOPHILS ABSOLUTE AUTO 0.02 K/uL (0.00-0.10); IMMATURE GRAN ABSOLUTE AUTO 0.02 K/uL (0.00-0.23)
[2025-01-12] MEDS: Sodium Chloride 0.9% 10 ML Syringe FLUSH ONE (12:59)
[2025-01-12] MEDS: Iopamidol 612 MG/ML 100 ML Bottle IV SCH (13:00)
[2025-01-12] MEDS: Sodium Chloride 0.9% 80 ML IV SCH (13:00)
== END 2025-01-12 14:26 | disposition home or self-care (01) ==
LOC: JP.ED 11:15
DX: R10.9 Unspecified abdominal pain (principal); K21.9 Gastro-esophageal reflux disease without esophagitis; Z79.899 Other long term (current) drug therapy; Z90.49 Acquired absence of other specified parts of digestive tract
CPT/HCPCS: 36415; 74177; 80053; 85025; 99284; Q9967; 99283